=== PATIENT | female | born 1980 | race Two or more races ===

== ENCOUNTER → 2016-11-12 | Emergency (ER) | payer OTHER | END | disposition left against medical advice (07) | LOC: ER 00:55 | DX: I10 Essential (primary) hypertension (principal); Z53.21 Procedure and treatment not carried out due to patient leaving prior to being seen by health care provider ==

== ENCOUNTER 2017-02-22 00:58 | Emergency (ER) | payer MEDICAID ==
[~2017-02-22] VITALS: Ht 152.4 cm; Wt 61.2 kg
[2017-02-22] MEDS ORDERED: cloNIDine HCL 0.1 MG TAB ONE (01:09)
[2017-02-22] MEDS ORDERED: cloNIDine HCL 0.1 MG TAB PO ONE (01:30)
[2017-02-22] MEDS ORDERED: HYDROcodone-ACET 5/325MG TAB PO ONE (06:00)
[2017-02-22 09:35] VITALS: BP 144/95
== END 2017-02-22 10:24 | disposition home or self-care (01) ==
LOC: ER 01:00
DX: S83.92XA Sprain of unspecified site of left knee, initial encounter (principal); I10 Essential (primary) hypertension; R51 Headache; F17.210 Nicotine dependence, cigarettes, uncomplicated; W18.39XA Other fall on same level, initial encounter; Y93.89 Activity, other specified; Y92.89 Other specified places as the place of occurrence of the external cause; Y99.8 Other external cause status
CPT/HCPCS: 70450; 73562

== ENCOUNTER 2018-12-21 19:52 | Emergency (ER) | payer MEDICAID ==
[~2018-12-21] VITALS: Ht 157.5 cm; Wt 81.6 kg
[2018-12-21] MEDS ORDERED: FAMOTIDINE (10MG/ML) 2ML VL IV ONE (20:00)
[2018-12-21] MEDS ORDERED: MORPHINE SULFATE 4 MG/ML SYR/VIAL IV ONE (20:00)
[2018-12-21] MEDS ORDERED: PROCHLORPERAZINE EDISYLATE 5 MG/ML 2ML VIAL IV ONE (20:00)
[2018-12-21] MEDS ORDERED: LABETALOL HCL 5 MG/ML ML 20ML VIAL IV ONE ×2 (22:00→23:30)
[2018-12-21 22:25] LABS: Basophils # (auto) 0.1 uL; Eosinophils # (auto) 0.1 uL; Platelet Count (auto) 355 10^3/uL (140-450)
[2018-12-21 22:27] LABS: Basophils % (auto) 0.7 % (0.0-2.0); Eosinophils % (auto) 0.6 % (0.0-7.0); Hematocrit 43.5 % (36.0-46.0); Lymphocytes % (auto) 8.5 % (10.0-50.0); Mean Corpuscular Hemoglobin 26.2 pg (28.0-32.0); Mean Corpuscular Hgb Conc. 32.2 g/dL (32.0-36.0); Mean Corpuscular Volume 81.4 fL (80.0-100.0); Monocytes # (auto) 0.6 uL; Monocytes % (auto) 4.8 % (0.0-12.0); Neutrophils # (auto) 10.1 uL; Neutrophils % (auto) 85.4 % (37.0-80.0); Red Blood Cells 5.34 10^6/uL (4.0-5.20); Red Cell Distribution Width 16.5 % (11.8-14.3); White Blood Cell 11.8 10^3/uL (4.4-10.8)
[2018-12-21 22:39] LABS: Albumin 3.5 g/dL (3.4-5.0); Calcium 9.1 mg/dL (8.5-10.1); Potassium 3.4 mmol/L (3.5-5.1)
[2018-12-21 22:45] LABS: BUN/Creatinine Ratio 6.8; Bilirubin, Total 0.4 mg/dL (0.2-1.0); Total Protein 8.6 g/dL (6.4-8.2)
[2018-12-22] MEDS ORDERED: FUROSEMIDE 40 MG/4 ML VIAL IV ONE ×2 (00:30→02:15)
[2018-12-22 02:58] LABS: Urine Bacteria FEW /hpf (None Seen); Urine Blood Negative /uL (Negative); Urine Specific Gravity 1.007 (1.001-1.035); Urine WBC 2 /hpf (0 - 5)
[2018-12-22] MEDS ORDERED: NICARDIPINE 25MG/250ML BAG KIT 250 ML IV SCH (03:45)
[2018-12-22 04:48] LABS: Alcohol, Urine < 3.0 mg/dL (0-5); Amphetamine Screen, Urine POSITIVE (NEGATIVE); Barbiturate Scree,Urine NEGATIVE (NEGATIVE); Benzodiazephine Screen, Urine NEGATIVE (NEGATIVE); Cannabinoid Screen, Urine NEGATIVE (NEGATIVE); Cocaine Screen, Urine NEGATIVE (NEGATIVE); Opiate Scree,Urine NEGATIVE (NEGATIVE); Phencyclidine Screen, Urine NEGATIVE (NEGATIVE)
[2018-12-22 05:30] VITALS: BP 125/88
== END 2018-12-22 06:32 | disposition home or self-care (01) ==
LOC: EDBD 19:52 → ER 19:56
DX: R10.12 Left upper quadrant pain (principal); R10.32 Left lower quadrant pain; I16.0 Hypertensive urgency; I10 Essential (primary) hypertension; R51 Headache
CPT/HCPCS: 36415; 70450; 74176; 80053; 80307; 80320; 81001; 82140; 82150; 83605; 83690; 84702; 85025; 87040; 93005; 94761; 96365; 96375; 96376; 99284; J0780; J1940; J2270; J3490

== ENCOUNTER 2021-03-28 20:10 | Emergency (ER) | payer MEDICAID ==
[~2021-03-28] VITALS: Ht 152.4 cm; Wt 64.9 kg
[2021-03-29] MEDS ORDERED: ACETAMINOPHEN 325 MG TAB PO ONE (01:15)
[2021-03-29] MEDS ORDERED: IPRATROPIUM BROM 0.5 MG/2.5ML INH SOL ONE (03:20)
[2021-03-29] MEDS ORDERED: ALBUTEROL SULF 2.5 MG/0.5ML(0.5%) NEB SOLN ONE (03:20)
[2021-03-29] MEDS ORDERED: METO-289 PO (04:44)
[2021-03-29] MEDS ORDERED: CLOP75TA28 PO (04:44)
[2021-03-29] MEDS ORDERED: ATOR40TA52 PO (04:50)
[2021-03-29] MEDS ORDERED: ALBU108A5 IN (04:50)
[2021-03-29 05:00] VITALS: BP 129/78
== END 2021-03-29 05:36 | disposition home or self-care (01) ==
LOC: EDBD 20:10 → ER 20:13
DX: S09.8XXA Other specified injuries of head, initial encounter (principal); J45.909 Unspecified asthma, uncomplicated; E78.5 Hyperlipidemia, unspecified; I10 Essential (primary) hypertension; F17.210 Nicotine dependence, cigarettes, uncomplicated; F12.10 Cannabis abuse, uncomplicated; Y08.89XA Assault by other specified means, initial encounter; Y93.39 Activity, other involving climbing, rappelling and jumping off; Y92.89 Other specified places as the place of occurrence of the external cause; Y99.8 Other external cause status
CPT/HCPCS: 70450; 94644; 99284; J7644

== ENCOUNTER 2021-12-07 15:14 | Inpatient (IN) | payer MEDICAID ==
[~2021-12-07] VITALS: Ht 155.7 cm; Wt 61.1 kg
[2021-12-07] MEDS: SODIUM CHLORIDE 0.9% 1,000 ML IV SCH (02:30)
[2021-12-07] MEDS: AZITHROMYCIN 500MG/ 250ML 250 ML IV SCH (02:43)
[~2021-12-07 15:14] MED LIST: ALBU108A5 IN; ATOR40TA52 PO; CLOP75TA28 PO
[2021-12-07] MEDS ORDERED: SODIUM CHLORIDE 0.9% 1,000 ML IV ONE ×2 (15:45→17:30)
[2021-12-07] MEDS ORDERED: methylPREDNISolone SOD SUCC 125 MG/2 ML VL IV ONE (15:45)
[2021-12-07] MEDS ORDERED: ALBUTEROL SULF 2.5 MG/0.5ML(0.5%) NEB SOLN NEB ONE (15:45)
[2021-12-07] MEDS ORDERED: IPRATROPIUM BROM 0.5 MG/2.5ML INH SOL NEB ONE (15:45)
[2021-12-07] MEDS ORDERED: ALBUTEROL SULF 2.5 MG/0.5ML(0.5%) NEB SOLN ONE ×2 (16:25→22:31)
[2021-12-07 16:28] LABS: Basophils # (auto) 0.1 10 ^3/uL (0-0.2); Basophils % (auto) 0.4 % (0.0-2.0); Eosinophils # (auto) 0.3 10 ^3/uL (0-0.8); Eosinophils % (auto) 1.8 % (0.0-7.0); Hematocrit 40.3 % (36.0-46.0); Hemoglobin 12.8 g/dL (12.2-16.2); Lymphocytes # (auto) 1.1 10 ^3/uL (0.4-5.4); Lymphocytes % (auto) 7.7 % (10.0-50.0); Mean Corpuscular Hemoglobin 27.6 pg (28.0-32.0); Mean Corpuscular Hgb Conc. 31.8 g/dL (32.0-36.0); Mean Corpuscular Volume 86.8 fL (80.0-100.0); Monocytes # (auto) 1.1 10 ^3/uL (0-1.3); Monocytes % (auto) 8.1 % (0.0-12.0); Neutrophils # (auto) 11.3 10 ^3/uL (1.6-8.6); Red Blood Cells 4.64 10^6/uL (4.0-5.20); Red Cell Distribution Width 15.2 % (11.8-14.3); White Blood Cell 13.8 10^3/uL (4.4-10.8)
[2021-12-07] MEDS ORDERED: ACETAMINOPHEN 325 MG TAB PO ONE (16:45)
[2021-12-07] MEDS ORDERED: SUCCINYLCHOLINE CHLORIDE 20 MG/ML 10ML VIAL IV ONE ×3 (16:45→17:00)
[2021-12-07] MEDS ORDERED: ETOMIDATE (2MG/ML) 20ML VIAL IV ONE ×3 (16:45→17:00)
[2021-12-07 16:47] LABS: Albumin 2.8 g/dL (3.4-5.0); Calcium 8.4 mg/dL (8.5-10.1); Potassium 3.1 mmol/L (3.5-5.1)
[2021-12-07] MEDS ORDERED: MAGNESIUM SULFATE 1GM/100ML 200 ML IV ONE (16:48)
[2021-12-07 16:49] LABS: BUN/Creatinine Ratio 13.8
[2021-12-07 16:52] LABS: Bilirubin, Total 0.4 mg/dL (0.2-1.0); Total Protein 6.6 g/dL (6.4-8.2)
[2021-12-07] MEDS ORDERED: PROPOFOL 100 ML IV ONE (16:57)
[2021-12-07] MEDS: PROPOFOL 100 ML IV SCH ×2 (17:00→17:29)
[2021-12-07] MEDS: MAGNESIUM SULFATE 1GM/100ML 100 ML IV SCH ×2 (17:05→17:23)
[2021-12-07] MEDS ORDERED: MIDAZOLAM HCL 5 MG/ML-1ML VIAL ONE (17:06)
[2021-12-07] MEDS ORDERED: PROPOFOL 10 MG/ML 20 ML IV ONE (17:15)
[2021-12-07] MEDS ORDERED: fentaNYL CITRATE 100 MCG/2 ML VL IV ONE ×2 (17:15→18:30)
[2021-12-07] MEDS ORDERED: MIDAZOLAM HCL 5 MG/ML-1ML VIAL IV ONE (17:15)
[2021-12-07] MEDS ORDERED: fentaNYL CITRATE 100 MCG/2 ML VL ONE (17:16)
[2021-12-07] MEDS ORDERED: MIDAZOLAM DRIP 50 mg/50mL 50 ML IV ONE (17:22)
[2021-12-07] MEDS: MIDAZOLAM DRIP 50 mg/50mL 50 ML IV SCH ×4 (17:25→18:42)
[2021-12-07] MEDS ORDERED: POTASSIUM CHL 20MEQ/100ML 100 ML IV SCH (18:30)
[2021-12-07] MEDS ORDERED: fentaNYL Drip 2500mCg/250mlNS 250 ML IV SCH (18:30)
[2021-12-07] MEDS ORDERED: fentaNYL Drip 2500mCg/250mlNS 250 ML IV ONE (18:32)
[2021-12-07 18:33] VITALS: BP 132/96
[2021-12-07 18:41] LABS: Urine Bacteria NONE SEEN /hpf (None Seen); Urine Blood Negative /uL (Negative); Urine Specific Gravity 1.007 (1.001-1.035); Urine WBC <1 /hpf (0 - 5)
[2021-12-07] MEDS ORDERED: SOD CHL 0.9%/ KCL 40MEQ 1,000 ML IV ONE (18:45)
[2021-12-07] MEDS: fentaNYL Drip 2500mCg/250mlNS 250 ML IV SCH ×2 (18:45→19:03)
[2021-12-07 18:47] VITALS: BP 137/89
[2021-12-07 18:50] LABS: Lactic Acid w/Reflex 2.4 mmol/L (0.4-2.0)
[2021-12-07 18:57] LABS: Alcohol, Urine < 3.0 mg/dL (0-10); Amphetamine Screen, Urine NEGATIVE (NEGATIVE); Barbiturate Scree,Urine NEGATIVE (NEGATIVE); Benzodiazephine Screen, Urine POSITIVE (NEGATIVE); Cannabinoid Screen, Urine NEGATIVE (NEGATIVE); Cocaine Screen, Urine NEGATIVE (NEGATIVE); Opiate Scree,Urine NEGATIVE (NEGATIVE); Phencyclidine Screen, Urine NEGATIVE (NEGATIVE)
[2021-12-07] MEDS: NOREPINEPHRINE 8 MG/250ML KIT 250 ML IV SCH (19:00)
[2021-12-07 19:49] VITALS: BP 111/82
[2021-12-07] MEDS ORDERED: ROCURONIUM 10MG/ML 10ML VIAL IV ONE ×5 (20:00→23:20)
[2021-12-07] MEDS ORDERED: MORPHINE SULFATE INJ 2 MG/ml SYRG IV PRN (20:45)
[2021-12-07] MEDS ORDERED: DEXTROSE (50%) 50ML SYRG IV PRN (20:45)
[2021-12-07] MEDS ORDERED: SODIUM CHLORIDE 0.9% 1,000 ML IV SCH (20:45)
[2021-12-07] MEDS ORDERED: LORazepam 0.5 MG TAB PO PRN (20:45)
[2021-12-07] MEDS ORDERED: ONDANSETRON HCL 4 MG/2 ML VIAL IV PRN (20:45)
[2021-12-07] MEDS ORDERED: ROCURONIUM BROMIDE 1,000 MG in D5W 5% 150 ML IV SCH (22:00)
[2021-12-07] MEDS ORDERED: IPRATROPIUM BROM 0.5 MG/2.5ML INH SOL ONE (22:31)
[2021-12-07] MEDS ORDERED: NOREPINEPHRINE 8 MG/250ML KIT 250 ML IV ONE (23:02)
[2021-12-08] VITALS (71 sets, daily range): BP systolic 95–141; BP diastolic 44–96
[2021-12-08] MEDS: NOREPINEPHRINE 8 MG/250ML KIT 250 ML IV SCH (00:07)
[2021-12-08] MEDS: PROPOFOL 100 ML IV SCH ×4 (02:00→21:57)
[2021-12-08] MEDS: MIDAZOLAM DRIP 50 mg/50mL 50 ML IV SCH ×5 (02:00→20:00)
[2021-12-08] MEDS: cefTRIAXone 1GM/50ML D5W 50 ML IV SCH ×2 (02:30→10:04)
[2021-12-08] MEDS: ACCU-CHEK COMFORT CURVE STRIP VI SCH ×4 (02:40→17:26)
[2021-12-08] MEDS: InsuLIN REG 1unit/0.01ml Soln (100units/ml) SC SCH ×4 (02:40→17:26)
[2021-12-08] MEDS ORDERED: methylPREDNISolone SOD SUCC 40 MG/ML VL IV SCH ×2 (06:00→10:00)
[2021-12-08 06:43] LABS: Hematocrit 37.5 % (36.0-46.0); Mean Corpuscular Hemoglobin 28.3 pg (28.0-32.0); Mean Corpuscular Hgb Conc. 31.9 g/dL (32.0-36.0); Mean Corpuscular Volume 88.7 fL (80.0-100.0); Red Blood Cells 4.23 10^6/uL (4.0-5.20); Red Cell Distribution Width 15.1 % (11.8-14.3); White Blood Cell 23.1 10^3/uL (4.4-10.8)
[2021-12-08 07:00] LABS: Band Neutrophils % (manual) 0; Basophils % (manual) 0 (0.0-2.0); Blast Cells 0; Eosinophils % (manual) 0 (0-7); Metamyelocytes % 0; Myelocytes % 0; Promyelocytes % 0; Reactive Lymphocytes 0
[2021-12-08] MEDS: SODIUM CHLORIDE 0.9% 1,000 ML IV SCH ×2 (08:04→16:35)
[2021-12-08] MEDS ORDERED: SODIUM BICARBONATE 8.4 % INJ 50ML VIAL IV ONE (08:15)
[2021-12-08 09:17] LABS: Lymphocytes % (manual) 3 (10.0-50.0); Monocytes % (manual) 4 (0-12)
[2021-12-08] MEDS: ALBUTEROL SULF 2.5 MG/0.5ML(0.5%) NEB SOLN NEB SCH ×7 (09:32→22:40)
[2021-12-08 09:55] LABS: BUN/Creatinine Ratio 10.3; Calcium 6.7 mg/dL (8.5-10.1)
[2021-12-08] MEDS: fentaNYL Drip 2500mCg/250mlNS 250 ML IV SCH ×2 (10:00→18:00)
[2021-12-08 10:01] LABS: Potassium 6.3 mmol/L (3.5-5.1)
[2021-12-08] MEDS: KETAMINE HCL 500 MG in SODIUM CHL 0.9% 490 ML IV SCH (10:12)
[2021-12-08] MEDS: BUDESONIDE (INHALATION) 0.5 MG/2 ML NEB NEB SCH ×2 (10:35→19:09)
[2021-12-08] MEDS: AZITHROMYCIN 500MG/ 250ML 250 ML IV SCH (10:36)
[2021-12-08] MEDS: IPRATROPIUM BROM 0.5 MG/2.5ML INH SOL NEB SCH ×3 (11:01→22:40)
[2021-12-08] MEDS ORDERED: VANCOMYCIN PER PHARMACY 0 MG IV SCH (11:45)
[2021-12-08] MEDS ORDERED: CALCIUM GLUC 1,000mg/50ml-NS 50 ML IV ONE (11:45)
[2021-12-08] MEDS ORDERED: DEXTROSE (50%) 50ML SYRG IV ONE (11:45)
[2021-12-08] MEDS ORDERED: InsuLIN REG 1unit/0.01ml Soln (100units/ml) IV ONE (11:45)
[2021-12-08] MEDS ORDERED: ALBUTEROL SULF 2.5 MG/0.5ML(0.5%) NEB SOLN NEB ONE (11:45)
[2021-12-08] MEDS: methylPREDNISolone SOD SUCC 40 MG/ML VL IV SCH ×2 (12:28→17:39)
[2021-12-08] MEDS: VANCOMYCIN 1GM/250ML 250 ML IV SCH (13:15)
[2021-12-08 15:57] LABS: BUN/Creatinine Ratio 6.8; Calcium 7.5 mg/dL (8.5-10.1); Potassium 3.7 mmol/L (3.5-5.1)
[2021-12-09] VITALS (106 sets, daily range): BP systolic 86–117; BP diastolic 43–79
[2021-12-09] MEDS: VANCOMYCIN 1GM/250ML 250 ML IV SCH ×2 (01:00→13:08)
[2021-12-09] MEDS: SODIUM CHLORIDE 0.9% 1,000 ML IV SCH ×3 (03:16→17:50)
[2021-12-09] MEDS: fentaNYL Drip 2500mCg/250mlNS 250 ML IV SCH ×3 (03:17→18:39)
[2021-12-09] MEDS: MIDAZOLAM DRIP 50 mg/50mL 50 ML IV SCH ×6 (03:24→20:30)
[2021-12-09 04:14] LABS: Basophils # (auto) 0 10 ^3/uL (0-0.2); Basophils % (auto) 0.2 % (0.0-2.0); Eosinophils # (auto) 0 10 ^3/uL (0-0.8); Eosinophils % (auto) 0.2 % (0.0-7.0); Hematocrit 30.6 % (36.0-46.0); Lymphocytes # (auto) 0.4 10 ^3/uL (0.4-5.4); Lymphocytes % (auto) 2.2 % (10.0-50.0); Mean Corpuscular Hemoglobin 28.2 pg (28.0-32.0); Mean Corpuscular Hgb Conc. 32.6 g/dL (32.0-36.0); Mean Corpuscular Volume 86.6 fL (80.0-100.0); Monocytes # (auto) 0.5 10 ^3/uL (0-1.3); Monocytes % (auto) 2.8 % (0.0-12.0); Neutrophils # (auto) 17.9 10 ^3/uL (1.6-8.6); Neutrophils % (auto) 94.6 % (37.0-80.0); Red Blood Cells 3.53 10^6/uL (4.0-5.20); Red Cell Distribution Width 15.1 % (11.8-14.3); White Blood Cell 18.9 10^3/uL (4.4-10.8)
[2021-12-09] MEDS: ALBUTEROL SULF 2.5 MG/0.5ML(0.5%) NEB SOLN NEB SCH ×6 (04:28→22:16)
[2021-12-09] MEDS: IPRATROPIUM BROM 0.5 MG/2.5ML INH SOL NEB SCH ×6 (04:28→22:16)
[2021-12-09 04:30] LABS: Albumin 2.1 g/dL (3.4-5.0); Calcium 7.4 mg/dL (8.5-10.1); Potassium 3.3 mmol/L (3.5-5.1)
[2021-12-09 04:35] LABS: BUN/Creatinine Ratio 11.6; Bilirubin, Total 0.5 mg/dL (0.2-1.0); Total Protein 5.2 g/dL (6.4-8.2)
[2021-12-09] MEDS: InsuLIN REG 1unit/0.01ml Soln (100units/ml) SC SCH ×4 (06:00→18:00)
[2021-12-09] MEDS: ACCU-CHEK COMFORT CURVE STRIP VI SCH ×4 (06:00→17:50)
[2021-12-09] MEDS: methylPREDNISolone SOD SUCC 40 MG/ML VL IV SCH ×4 (06:23→17:49)
[2021-12-09] MEDS: BUDESONIDE (INHALATION) 0.5 MG/2 ML NEB NEB SCH ×2 (06:28→18:20)
[2021-12-09] MEDS: PROPOFOL 100 ML IV SCH ×3 (08:01→17:50)
[2021-12-09] MEDS: cefTRIAXone 1GM/50ML D5W 50 ML IV SCH (09:45)
[2021-12-09] MEDS: AZITHROMYCIN 500MG/ 250ML 250 ML IV SCH (09:45)
[2021-12-09] MEDS ORDERED: POTASSIUM CHL 20MEQ/100ML 100 ML IV ONE (10:45)
[2021-12-09] MEDS: PANTOPRAZOLE 40 MG/10 ML VIAL INJ IV SCH (11:03)
[2021-12-09] MEDS: KETAMINE HCL 500 MG in SODIUM CHL 0.9% 490 ML IV SCH (11:04)
[2021-12-09] MEDS: NOREPINEPHRINE 8 MG/250ML KIT 250 ML IV SCH (23:30)
[2021-12-10] VITALS (102 sets, daily range): BP systolic 90–146; BP diastolic 48–93
[2021-12-10] MEDS: methylPREDNISolone SOD SUCC 40 MG/ML VL IV SCH ×4 (00:09→17:45)
[2021-12-10] MEDS: SODIUM CHLORIDE 0.9% 1,000 ML IV SCH ×3 (01:00→17:40)
[2021-12-10] MEDS: VANCOMYCIN 1GM/250ML 250 ML IV SCH ×2 (01:07→12:33)
[2021-12-10] MEDS: PROPOFOL 100 ML IV SCH ×3 (01:16→23:56)
[2021-12-10] MEDS: ALBUTEROL SULF 2.5 MG/0.5ML(0.5%) NEB SOLN NEB SCH ×6 (02:14→22:50)
[2021-12-10] MEDS: IPRATROPIUM BROM 0.5 MG/2.5ML INH SOL NEB SCH ×6 (02:14→22:47)
[2021-12-10] MEDS: fentaNYL Drip 2500mCg/250mlNS 250 ML IV SCH ×3 (03:18→18:50)
[2021-12-10 03:35] LABS: Basophils # (auto) 0.1 10 ^3/uL (0-0.2); Basophils % (auto) 0.6 % (0.0-2.0); Eosinophils # (auto) 0 10 ^3/uL (0-0.8); Eosinophils % (auto) 0.1 % (0.0-7.0); Hematocrit 31.6 % (36.0-46.0); Hemoglobin 10.4 g/dL (12.2-16.2); Lymphocytes # (auto) 0.4 10 ^3/uL (0.4-5.4); Lymphocytes % (auto) 2.2 % (10.0-50.0); Mean Corpuscular Hemoglobin 28.7 pg (28.0-32.0); Mean Corpuscular Hgb Conc. 32.8 g/dL (32.0-36.0); Mean Corpuscular Volume 87.3 fL (80.0-100.0); Monocytes # (auto) 0.4 10 ^3/uL (0-1.3); Monocytes % (auto) 1.9 % (0.0-12.0); Neutrophils # (auto) 17.8 10 ^3/uL (1.6-8.6); Neutrophils % (auto) 95.2 % (37.0-80.0); Nucleated Red Blood Cells % 0.2 %; Red Blood Cells 3.61 10^6/uL (4.0-5.20); Red Cell Distribution Width 15.7 % (11.8-14.3); White Blood Cell 18.7 10^3/uL (4.4-10.8)
[2021-12-10 03:47] LABS: BUN/Creatinine Ratio 23.4; Calcium 7.7 mg/dL (8.5-10.1); Potassium 3.6 mmol/L (3.5-5.1)
[2021-12-10 03:50] LABS: Bilirubin, Total 0.2 mg/dL (0.2-1.0); Total Protein 5.2 g/dL (6.4-8.2)
[2021-12-10] MEDS ORDERED: ALBUTEROL SULF 2.5 MG/0.5ML(0.5%) NEB SOLN NEB ONE ×3 (04:04→17:30)
[2021-12-10] MEDS ORDERED: IPRATROPIUM BROM 0.5 MG/2.5ML INH SOL NEB ONE (04:04)
[2021-12-10] MEDS ORDERED: IPRATROPIUM BROM 0.5 MG/2.5ML INH SOL ONE (04:22)
[2021-12-10] MEDS ORDERED: ALBUTEROL SULF 2.5 MG/0.5ML(0.5%) NEB SOLN ONE ×3 (04:22→19:17)
[2021-12-10] MEDS: ACCU-CHEK COMFORT CURVE STRIP VI SCH ×4 (06:00→17:37)
[2021-12-10] MEDS: InsuLIN REG 1unit/0.01ml Soln (100units/ml) SC SCH ×4 (06:00→17:37)
[2021-12-10] MEDS: MIDAZOLAM DRIP 50 mg/50mL 50 ML IV SCH ×3 (06:00→22:50)
[2021-12-10] MEDS: BUDESONIDE (INHALATION) 0.5 MG/2 ML NEB NEB SCH ×2 (06:45→22:47)
[2021-12-10] MEDS: cefTRIAXone 1GM/50ML D5W 50 ML IV SCH (08:03)
[2021-12-10] MEDS: AZITHROMYCIN 500MG/ 250ML 250 ML IV SCH (08:03)
[2021-12-10] MEDS: PANTOPRAZOLE 40 MG/10 ML VIAL INJ IV SCH (08:03)
[2021-12-10] MEDS: KETAMINE HCL 500 MG in SODIUM CHL 0.9% 490 ML IV SCH (08:04)
[2021-12-10] MEDS: NOREPINEPHRINE 8 MG/250ML KIT 250 ML IV SCH (23:30)
[2021-12-11] VITALS (103 sets, daily range): BP systolic 84–161; BP diastolic 44–104
[2021-12-11] MEDS: methylPREDNISolone SOD SUCC 40 MG/ML VL IV SCH ×5 (00:04→23:38)
[2021-12-11] MEDS: SODIUM CHLORIDE 0.9% 1,000 ML IV SCH ×3 (02:00→20:06)
[2021-12-11] MEDS: VANCOMYCIN 1GM/250ML 250 ML IV SCH ×2 (02:10→14:13)
[2021-12-11] MEDS: fentaNYL Drip 2500mCg/250mlNS 250 ML IV SCH ×2 (02:13→10:36)
[2021-12-11] MEDS: ALBUTEROL SULF 2.5 MG/0.5ML(0.5%) NEB SOLN NEB SCH ×6 (02:26→22:18)
[2021-12-11] MEDS: IPRATROPIUM BROM 0.5 MG/2.5ML INH SOL NEB SCH ×6 (02:26→22:18)
[2021-12-11 04:44] LABS: Basophils # (auto) 0 10 ^3/uL (0-0.2); Basophils % (auto) 0.1 % (0.0-2.0); Eosinophils # (auto) 0 10 ^3/uL (0-0.8); Hematocrit 32.3 % (36.0-46.0); Hemoglobin 10.2 g/dL (12.2-16.2); Lymphocytes # (auto) 0.3 10 ^3/uL (0.4-5.4); Lymphocytes % (auto) 1.6 % (10.0-50.0); Mean Corpuscular Hemoglobin 28.1 pg (28.0-32.0); Mean Corpuscular Hgb Conc. 31.7 g/dL (32.0-36.0); Mean Corpuscular Volume 88.4 fL (80.0-100.0); Monocytes # (auto) 0.4 10 ^3/uL (0-1.3); Monocytes % (auto) 2.5 % (0.0-12.0); Neutrophils # (auto) 15.5 10 ^3/uL (1.6-8.6); Neutrophils % (auto) 95.8 % (37.0-80.0); Nucleated Red Blood Cells % 0.1 %; Red Blood Cells 3.65 10^6/uL (4.0-5.20); Red Cell Distribution Width 16.2 % (11.8-14.3); White Blood Cell 16.2 10^3/uL (4.4-10.8)
[2021-12-11 04:54] LABS: Albumin 2.2 g/dL (3.4-5.0); Calcium 7.6 mg/dL (8.5-10.1); Potassium 4.3 mmol/L (3.5-5.1)
[2021-12-11 04:59] LABS: Bilirubin, Total 0.2 mg/dL (0.2-1.0); Total Protein 5.6 g/dL (6.4-8.2)
[2021-12-11] MEDS: ACCU-CHEK COMFORT CURVE STRIP VI SCH ×5 (06:00→23:39)
[2021-12-11] MEDS: InsuLIN REG 1unit/0.01ml Soln (100units/ml) SC SCH ×5 (06:00→23:38)
[2021-12-11] MEDS: PROPOFOL 100 ML IV SCH ×2 (06:27→13:42)
[2021-12-11] MEDS: KETAMINE HCL 500 MG in SODIUM CHL 0.9% 490 ML IV SCH (08:15)
[2021-12-11] MEDS: MIDAZOLAM DRIP 50 mg/50mL 50 ML IV SCH ×5 (08:16→20:00)
[2021-12-11] MEDS ORDERED: ALBUTEROL SULF 2.5 MG/0.5ML(0.5%) NEB SOLN ONE (08:53)
[2021-12-11] MEDS ORDERED: ALBUTEROL SULF 2.5 MG/0.5ML(0.5%) NEB SOLN NEB ONE (09:00)
[2021-12-11] MEDS: AZITHROMYCIN 500MG/ 250ML 250 ML IV SCH (09:29)
[2021-12-11] MEDS: PANTOPRAZOLE 40 MG/10 ML VIAL INJ IV SCH (09:29)
[2021-12-11] MEDS: cefTRIAXone 1GM/50ML D5W 50 ML IV SCH (09:29)
[2021-12-11] MEDS: BUDESONIDE (INHALATION) 0.5 MG/2 ML NEB NEB SCH ×2 (09:33→22:18)
[2021-12-11] MEDS: ENOXAPARIN SOD 40 MG/0.4 ML SYRINGE SC SCH (12:28)
[2021-12-11] MEDS: NOREPINEPHRINE 8 MG/250ML KIT 250 ML IV SCH (23:30)
[2021-12-12] VITALS (107 sets, daily range): BP systolic 90–144; BP diastolic 51–97
[2021-12-12] MEDS: VANCOMYCIN 1GM/250ML 250 ML IV SCH ×2 (01:00→12:59)
[2021-12-12] MEDS: IPRATROPIUM BROM 0.5 MG/2.5ML INH SOL NEB SCH ×5 (02:14→22:11)
[2021-12-12] MEDS: ALBUTEROL SULF 2.5 MG/0.5ML(0.5%) NEB SOLN NEB SCH ×5 (02:14→22:11)
[2021-12-12] MEDS: SODIUM CHLORIDE 0.9% 1,000 ML IV SCH ×4 (03:00→06:19)
[2021-12-12] MEDS: ALBUTEROL SULF 2.5 MG/0.5ML(0.5%) NEB SOLN NEB PRN ×5 (04:40→17:58)
[2021-12-12] MEDS: BUDESONIDE (INHALATION) 0.5 MG/2 ML NEB NEB SCH ×2 (05:48→22:11)
[2021-12-12] MEDS: InsuLIN REG 1unit/0.01ml Soln (100units/ml) SC SCH ×4 (06:00→23:43)
[2021-12-12] MEDS: methylPREDNISolone SOD SUCC 40 MG/ML VL IV SCH ×4 (06:00→23:41)
[2021-12-12] MEDS: ACCU-CHEK COMFORT CURVE STRIP VI SCH ×4 (06:00→23:41)
[2021-12-12] MEDS: cefTRIAXone 1GM/50ML D5W 50 ML IV SCH (09:27)
[2021-12-12] MEDS: PANTOPRAZOLE 40 MG/10 ML VIAL INJ IV SCH (09:28)
[2021-12-12] MEDS: ENOXAPARIN SOD 40 MG/0.4 ML SYRINGE SC SCH (09:28)
[2021-12-12] MEDS: AZITHROMYCIN 500MG/ 250ML 250 ML IV SCH (09:28)
[2021-12-12] MEDS: PROPOFOL 100 ML IV SCH ×3 (09:34→20:10)
[2021-12-12] MEDS: MIDAZOLAM DRIP 50 mg/50mL 50 ML IV SCH ×4 (11:13→21:25)
[2021-12-12] MEDS: fentaNYL Drip 2500mCg/250mlNS 250 ML IV SCH ×2 (11:47→20:09)
[2021-12-12] MEDS: FUROSEMIDE 40 MG/4 ML VIAL IV SCH (12:56)
[2021-12-12] MEDS: KETAMINE HCL 500 MG in SODIUM CHL 0.9% 490 ML IV SCH (17:19)
[2021-12-12] MEDS: NOREPINEPHRINE 8 MG/250ML KIT 250 ML IV SCH (23:30)
[2021-12-13] VITALS (107 sets, daily range): BP systolic 96–141; BP diastolic 52–91
[2021-12-13] MEDS: VANCOMYCIN 1GM/250ML 250 ML IV SCH ×3 (00:32→19:48)
[2021-12-13] MEDS: PROPOFOL 100 ML IV SCH ×6 (00:33→23:58)
[2021-12-13] MEDS: MIDAZOLAM DRIP 50 mg/50mL 50 ML IV SCH ×7 (02:00→22:23)
[2021-12-13] MEDS: ALBUTEROL SULF 2.5 MG/0.5ML(0.5%) NEB SOLN NEB SCH ×5 (02:37→22:07)
[2021-12-13] MEDS: IPRATROPIUM BROM 0.5 MG/2.5ML INH SOL NEB SCH ×5 (02:37→22:07)
[2021-12-13] MEDS: ROCURONIUM 10MG/ML 10ML VIAL IV PRN ×4 (03:23→22:41)
[2021-12-13] MEDS: ALBUTEROL SULF 2.5 MG/0.5ML(0.5%) NEB SOLN NEB PRN (03:39)
[2021-12-13] MEDS: fentaNYL Drip 2500mCg/250mlNS 250 ML IV SCH ×3 (03:53→19:55)
[2021-12-13] MEDS: KETAMINE HCL 500 MG in SODIUM CHL 0.9% 490 ML IV SCH (05:32)
[2021-12-13] MEDS: methylPREDNISolone SOD SUCC 40 MG/ML VL IV SCH ×4 (05:32→23:45)
[2021-12-13] MEDS: ACCU-CHEK COMFORT CURVE STRIP VI SCH ×4 (05:35→23:45)
[2021-12-13] MEDS: InsuLIN REG 1unit/0.01ml Soln (100units/ml) SC SCH ×4 (05:37→23:49)
[2021-12-13] MEDS: BUDESONIDE (INHALATION) 0.5 MG/2 ML NEB NEB SCH ×2 (07:49→22:07)
[2021-12-13] MEDS: AZITHROMYCIN 500MG/ 250ML 250 ML IV SCH (09:41)
[2021-12-13] MEDS: PANTOPRAZOLE 40 MG/10 ML VIAL INJ IV SCH (09:41)
[2021-12-13] MEDS: ENOXAPARIN SOD 40 MG/0.4 ML SYRINGE SC SCH (09:41)
[2021-12-13] MEDS: cefTRIAXone 1GM/50ML D5W 50 ML IV SCH (09:41)
[2021-12-13] MEDS: FUROSEMIDE 40 MG/4 ML VIAL IV SCH (09:42)
[2021-12-13 12:02] LABS: Basophils # (auto) 0 10 ^3/uL (0-0.2); Basophils % (auto) 0.4 % (0.0-2.0); Eosinophils # (auto) 0 10 ^3/uL (0-0.8); Eosinophils % (auto) 0.1 % (0.0-7.0); Hematocrit 30.4 % (36.0-46.0); Lymphocytes # (auto) 0.3 10 ^3/uL (0.4-5.4); Lymphocytes % (auto) 1.9 % (10.0-50.0); Mean Corpuscular Hemoglobin 27.8 pg (28.0-32.0); Mean Corpuscular Hgb Conc. 32.9 g/dL (32.0-36.0); Mean Corpuscular Volume 84.7 fL (80.0-100.0); Monocytes # (auto) 0.6 10 ^3/uL (0-1.3); Monocytes % (auto) 4.7 % (0.0-12.0); Neutrophils % (auto) 92.9 % (37.0-80.0); Nucleated Red Blood Cells % 0.1 %; Red Blood Cells 3.59 10^6/uL (4.0-5.20); Red Cell Distribution Width 15.4 % (11.8-14.3); White Blood Cell 12.9 10^3/uL (4.4-10.8)
[2021-12-13 12:21] LABS: Anion Gap 8 (5-15); BUN/Creatinine Ratio 41.5; Blood Urea Nitrogen 27 mg/dL (7-18); Calcium 7.5 mg/dL (8.5-10.1); Carbon Dioxide 25 mmol/L (21-32); Chloride 111 mmol/L (98-107); GFR African American 130 mL/min; GFR Non-African American 107 mL/min; Glucose 148 mg/dL (74-106); Potassium 3.6 mmol/L (3.5-5.1); Sodium 144 mmol/L (136-145)
[2021-12-13] MEDS: NOREPINEPHRINE 8 MG/250ML KIT 250 ML IV SCH (23:30)
[2021-12-14] VITALS (108 sets, daily range): BP systolic 91–130; BP diastolic 50–86
[2021-12-14] MEDS: ROCURONIUM 10MG/ML 10ML VIAL IV PRN ×4 (00:11→22:27)
[2021-12-14] MEDS: ALBUTEROL SULF 2.5 MG/0.5ML(0.5%) NEB SOLN NEB PRN ×7 (00:20→08:32)
[2021-12-14] MEDS: MIDAZOLAM DRIP 50 mg/50mL 50 ML IV SCH ×5 (01:28→21:30)
[2021-12-14] MEDS: ALBUTEROL SULF 2.5 MG/0.5ML(0.5%) NEB SOLN NEB SCH ×6 (02:00→22:26)
[2021-12-14] MEDS: IPRATROPIUM BROM 0.5 MG/2.5ML INH SOL NEB SCH ×6 (02:00→22:26)
[2021-12-14] MEDS: KETAMINE HCL 500 MG in SODIUM CHL 0.9% 490 ML IV SCH (02:38)
[2021-12-14] MEDS: fentaNYL Drip 2500mCg/250mlNS 250 ML IV SCH ×2 (04:29→21:48)
[2021-12-14 04:41] LABS: Basophils # (auto) 0 10 ^3/uL (0-0.2); Basophils % (auto) 0.1 % (0.0-2.0); Eosinophils # (auto) 0 10 ^3/uL (0-0.8); Hematocrit 30.4 % (36.0-46.0); Hemoglobin 9.9 g/dL (12.2-16.2); Lymphocytes # (auto) 0.2 10 ^3/uL (0.4-5.4); Lymphocytes % (auto) 1.7 % (10.0-50.0); Mean Corpuscular Hemoglobin 28.5 pg (28.0-32.0); Mean Corpuscular Hgb Conc. 32.6 g/dL (32.0-36.0); Mean Corpuscular Volume 87.5 fL (80.0-100.0); Monocytes # (auto) 0.6 10 ^3/uL (0-1.3); Monocytes % (auto) 5.1 % (0.0-12.0); Neutrophils % (auto) 93.1 % (37.0-80.0); Nucleated Red Blood Cells % 0.2 %; Red Blood Cells 3.48 10^6/uL (4.0-5.20); Red Cell Distribution Width 15.6 % (11.8-14.3); White Blood Cell 10.7 10^3/uL (4.4-10.8)
[2021-12-14 04:52] LABS: Calcium 7.4 mg/dL (8.5-10.1); Magnesium 2.5 mg/dL (1.6-2.6); Phosphorus 3.9 mg/dL (2.5-4.90); Potassium 3.9 mmol/L (3.5-5.1)
[2021-12-14] MEDS: PROPOFOL 100 ML IV SCH ×4 (05:10→21:25)
[2021-12-14] MEDS: methylPREDNISolone SOD SUCC 40 MG/ML VL IV SCH ×3 (05:36→18:02)
[2021-12-14] MEDS: ACCU-CHEK COMFORT CURVE STRIP VI SCH ×3 (05:36→18:23)
[2021-12-14] MEDS: InsuLIN REG 1unit/0.01ml Soln (100units/ml) SC SCH ×3 (05:39→18:00)
[2021-12-14] MEDS: BUDESONIDE (INHALATION) 0.5 MG/2 ML NEB NEB SCH ×2 (06:15→18:34)
[2021-12-14] MEDS: ENOXAPARIN SOD 40 MG/0.4 ML SYRINGE SC SCH (09:53)
[2021-12-14] MEDS: PANTOPRAZOLE 40 MG/10 ML VIAL INJ IV SCH (09:53)
[2021-12-14] MEDS: FUROSEMIDE 40 MG/4 ML VIAL IV SCH (09:54)
[2021-12-14] MEDS: cefTRIAXone 1GM/50ML D5W 50 ML IV SCH (09:55)
[2021-12-14] MEDS: AZITHROMYCIN 500MG/ 250ML 250 ML IV SCH (10:47)
[2021-12-14] MEDS ORDERED: Jevity 1.2 Cal/Fiber 1 Liter GT SCH (14:30)
[2021-12-14] MEDS: VANCOMYCIN 1GM/250ML 250 ML IV SCH (15:01)
[2021-12-14] MEDS: ceFAZolin 2 GM in D5W 5% 100 ML IV SCH (21:49)
[2021-12-14] MEDS: NOREPINEPHRINE 8 MG/250ML KIT 250 ML IV SCH (23:30)
[2021-12-15] VITALS (105 sets, daily range): BP systolic 110–157; BP diastolic 68–104
[2021-12-15] MEDS: methylPREDNISolone SOD SUCC 40 MG/ML VL IV SCH ×4 (00:19→18:50)
[2021-12-15] MEDS: ROCURONIUM 10MG/ML 10ML VIAL IV PRN ×7 (00:31→22:17)
[2021-12-15] MEDS: MIDAZOLAM DRIP 50 mg/50mL 50 ML IV SCH ×6 (01:13→19:48)
[2021-12-15] MEDS: IPRATROPIUM BROM 0.5 MG/2.5ML INH SOL NEB SCH ×6 (02:46→22:05)
[2021-12-15] MEDS: ALBUTEROL SULF 2.5 MG/0.5ML(0.5%) NEB SOLN NEB SCH ×6 (02:46→22:05)
[2021-12-15] MEDS: PROPOFOL 100 ML IV SCH ×4 (03:03→18:47)
[2021-12-15 04:35] LABS: Basophils # (auto) 0 10 ^3/uL (0-0.2); Basophils % (auto) 0.3 % (0.0-2.0); Eosinophils # (auto) 0 10 ^3/uL (0-0.8); Eosinophils % (auto) 0.1 % (0.0-7.0); Hematocrit 31.2 % (36.0-46.0); Lymphocytes # (auto) 0.2 10 ^3/uL (0.4-5.4); Lymphocytes % (auto) 1.4 % (10.0-50.0); Mean Corpuscular Hemoglobin 28.1 pg (28.0-32.0); Mean Corpuscular Volume 87.7 fL (80.0-100.0); Monocytes # (auto) 0.7 10 ^3/uL (0-1.3); Monocytes % (auto) 5.6 % (0.0-12.0); Neutrophils # (auto) 11.2 10 ^3/uL (1.6-8.6); Neutrophils % (auto) 92.6 % (37.0-80.0); Nucleated Red Blood Cells % 0.1 %; Red Blood Cells 3.55 10^6/uL (4.0-5.20); Red Cell Distribution Width 15.6 % (11.8-14.3); White Blood Cell 12.1 10^3/uL (4.4-10.8)
[2021-12-15 04:51] LABS: Albumin 2.2 g/dL (3.4-5.0); BUN/Creatinine Ratio 58.7; Calcium 7.8 mg/dL (8.5-10.1); Potassium 4.4 mmol/L (3.5-5.1)
[2021-12-15 04:54] LABS: Bilirubin, Total 0.2 mg/dL (0.2-1.0); Total Protein 5.3 g/dL (6.4-8.2)
[2021-12-15] MEDS: ACCU-CHEK COMFORT CURVE STRIP VI SCH ×4 (06:00→18:53)
[2021-12-15] MEDS: InsuLIN REG 1unit/0.01ml Soln (100units/ml) SC SCH ×4 (06:00→18:00)
[2021-12-15] MEDS: ceFAZolin 2 GM in D5W 5% 100 ML IV SCH ×3 (06:00→21:20)
[2021-12-15] MEDS: BUDESONIDE (INHALATION) 0.5 MG/2 ML NEB NEB SCH ×2 (06:18→22:05)
[2021-12-15] MEDS: fentaNYL Drip 2500mCg/250mlNS 250 ML IV SCH ×3 (06:28→21:21)
[2021-12-15] MEDS: PANTOPRAZOLE 40 MG/10 ML VIAL INJ IV SCH (10:29)
[2021-12-15] MEDS: FUROSEMIDE 40 MG/4 ML VIAL IV SCH (10:30)
[2021-12-15] MEDS: ENOXAPARIN SOD 40 MG/0.4 ML SYRINGE SC SCH (10:30)
[2021-12-15] MEDS: NOREPINEPHRINE 8 MG/250ML KIT 250 ML IV SCH (23:30)
[2021-12-16] VITALS (105 sets, daily range): BP systolic 100–167; BP diastolic 60–105
[2021-12-16] MEDS: MIDAZOLAM DRIP 50 mg/50mL 50 ML IV SCH ×5 (00:07→20:18)
[2021-12-16] MEDS: PROPOFOL 100 ML IV SCH ×6 (00:07→23:22)
[2021-12-16] MEDS: methylPREDNISolone SOD SUCC 40 MG/ML VL IV SCH ×4 (00:54→21:57)
[2021-12-16] MEDS: ALBUTEROL SULF 2.5 MG/0.5ML(0.5%) NEB SOLN NEB SCH ×6 (02:10→22:14)
[2021-12-16] MEDS: IPRATROPIUM BROM 0.5 MG/2.5ML INH SOL NEB SCH ×6 (02:10→22:14)
[2021-12-16 04:21] LABS: Hematocrit 31.9 % (36.0-46.0); Hemoglobin 10.8 g/dL (12.2-16.2); Mean Corpuscular Hemoglobin 28.4 pg (28.0-32.0); Mean Corpuscular Hgb Conc. 33.8 g/dL (32.0-36.0); Red Blood Cells 3.79 10^6/uL (4.0-5.20); White Blood Cell 9.9 10^3/uL (4.4-10.8)
[2021-12-16 04:24] LABS: Band Neutrophils % (manual) 0; Basophils % (manual) 0 (0.0-2.0); Blast Cells 0; Eosinophils % (manual) 0 (0-7); Promyelocytes % 0; Reactive Lymphocytes 0
[2021-12-16 04:33] LABS: Calcium 8.5 mg/dL (8.5-10.1); Potassium 3.6 mmol/L (3.5-5.1)
[2021-12-16 04:37] LABS: BUN/Creatinine Ratio 65.2
[2021-12-16] MEDS: ceFAZolin 2 GM in D5W 5% 100 ML IV SCH ×3 (05:22→21:54)
[2021-12-16] MEDS: ACCU-CHEK COMFORT CURVE STRIP VI SCH ×5 (05:29→23:39)
[2021-12-16] MEDS: InsuLIN REG 1unit/0.01ml Soln (100units/ml) SC SCH ×5 (05:29→23:39)
[2021-12-16] MEDS: BUDESONIDE (INHALATION) 0.5 MG/2 ML NEB NEB SCH ×2 (06:00→22:14)
[2021-12-16] MEDS: fentaNYL Drip 2500mCg/250mlNS 250 ML IV SCH ×3 (06:31→21:56)
[2021-12-16 06:44] LABS: Lymphocytes % (manual) 4 (10.0-50.0); Metamyelocytes % 1; Monocytes % (manual) 6 (0-12); Myelocytes % 1
[2021-12-16] MEDS: hydrALAZINE HCL 20 MG/ML VL IV PRN (08:49)
[2021-12-16] MEDS: ROCURONIUM 10MG/ML 10ML VIAL IV PRN ×2 (09:12→09:49)
[2021-12-16] MEDS: ENOXAPARIN SOD 40 MG/0.4 ML SYRINGE SC SCH (10:29)
[2021-12-16] MEDS: PANTOPRAZOLE 40 MG/10 ML VIAL INJ IV SCH ×2 (10:29→21:56)
[2021-12-16] MEDS: FUROSEMIDE 40 MG/4 ML VIAL IV SCH (10:29)
[2021-12-16] MEDS ORDERED: BUPRENORPHINE IV SCH (12:15)
[2021-12-16] MEDS ORDERED: LORazepam 2MG/ML-1ML VIAL IV PRN (13:30)
[2021-12-16] MEDS: NOREPINEPHRINE 8 MG/250ML KIT 250 ML IV SCH (23:17)
[2021-12-17] VITALS (106 sets, daily range): BP systolic 104–182; BP diastolic 65–105
[2021-12-17] MEDS: MIDAZOLAM DRIP 50 mg/50mL 50 ML IV SCH ×6 (01:08→23:36)
[2021-12-17] MEDS: hydrALAZINE HCL 20 MG/ML VL IV PRN (01:31)
[2021-12-17] MEDS: ALBUTEROL SULF 2.5 MG/0.5ML(0.5%) NEB SOLN NEB SCH ×6 (02:22→22:07)
[2021-12-17] MEDS: IPRATROPIUM BROM 0.5 MG/2.5ML INH SOL NEB SCH ×6 (02:22→22:07)
[2021-12-17 04:04] LABS: Hematocrit 32.2 % (36.0-46.0); Mean Corpuscular Hemoglobin 28.4 pg (28.0-32.0); Mean Corpuscular Hgb Conc. 34.3 g/dL (32.0-36.0); Mean Corpuscular Volume 82.9 fL (80.0-100.0); Red Blood Cells 3.89 10^6/uL (4.0-5.20); Red Cell Distribution Width 14.5 % (11.8-14.3); White Blood Cell 7.6 10^3/uL (4.4-10.8)
[2021-12-17 04:11] LABS: Band Neutrophils % (manual) 0; Basophils % (manual) 0 (0.0-2.0); Blast Cells 0; Eosinophils % (manual) 0 (0-7); Metamyelocytes % 0; Myelocytes % 0; Promyelocytes % 0; Reactive Lymphocytes 0
[2021-12-17 04:20] LABS: BUN/Creatinine Ratio 65.8; Calcium 7.8 mg/dL (8.5-10.1)
[2021-12-17] MEDS: ceFAZolin 2 GM in D5W 5% 100 ML IV SCH ×3 (05:10→21:01)
[2021-12-17] MEDS: methylPREDNISolone SOD SUCC 40 MG/ML VL IV SCH ×3 (05:11→21:02)
[2021-12-17] MEDS: PROPOFOL 100 ML IV SCH ×2 (05:30→15:30)
[2021-12-17] MEDS: InsuLIN REG 1unit/0.01ml Soln (100units/ml) SC SCH ×4 (05:31→23:37)
[2021-12-17] MEDS: ACCU-CHEK COMFORT CURVE STRIP VI SCH ×4 (05:31→23:37)
[2021-12-17] MEDS: BUDESONIDE (INHALATION) 0.5 MG/2 ML NEB NEB SCH ×2 (06:08→22:07)
[2021-12-17] MEDS: ROCURONIUM 10MG/ML 10ML VIAL IV PRN ×5 (06:45→23:32)
[2021-12-17] MEDS: fentaNYL Drip 2500mCg/250mlNS 250 ML IV SCH ×3 (06:46→23:32)
[2021-12-17 08:26] LABS: Lymphocytes % (manual) 1 (10.0-50.0); Monocytes % (manual) 2 (0-12)
[2021-12-17] MEDS: PANTOPRAZOLE 40 MG/10 ML VIAL INJ IV SCH ×2 (09:59→21:04)
[2021-12-17] MEDS: FUROSEMIDE 40 MG/4 ML VIAL IV SCH (10:00)
[2021-12-17] MEDS: ENOXAPARIN SOD 40 MG/0.4 ML SYRINGE SC SCH (10:00)
[2021-12-17] MEDS: POTASSIUM CHL 20MEQ/100ML 100 ML IV SCH ×3 (10:20→14:00)
[2021-12-17] MEDS ORDERED: chlordiazePOXIDE HCL 25 MG CAP NG PRN (13:15)
[2021-12-17] MEDS: chlordiazePOXIDE HCL 25 MG CAP NG SCH ×3 (14:14→23:37)
[2021-12-17] MEDS: NOREPINEPHRINE 8 MG/250ML KIT 250 ML IV SCH (23:27)
[2021-12-18] VITALS (105 sets, daily range): BP systolic 100–164; BP diastolic 57–101
[2021-12-18] MEDS: ROCURONIUM 10MG/ML 10ML VIAL IV PRN ×7 (00:59→22:05)
[2021-12-18] MEDS: PROPOFOL 100 ML IV SCH ×4 (01:42→17:51)
[2021-12-18] MEDS: ALBUTEROL SULF 2.5 MG/0.5ML(0.5%) NEB SOLN NEB SCH ×6 (02:15→21:57)
[2021-12-18] MEDS: IPRATROPIUM BROM 0.5 MG/2.5ML INH SOL NEB SCH ×6 (02:15→21:57)
[2021-12-18] MEDS: MIDAZOLAM DRIP 50 mg/50mL 50 ML IV SCH ×4 (04:19→19:55)
[2021-12-18 04:24] LABS: Potassium 3.8 mmol/L (3.5-5.1)
[2021-12-18 04:26] LABS: BUN/Creatinine Ratio 65.7
[2021-12-18] MEDS: chlordiazePOXIDE HCL 25 MG CAP NG SCH ×2 (05:00→11:27)
[2021-12-18] MEDS: ceFAZolin 2 GM in D5W 5% 100 ML IV SCH ×3 (05:00→22:09)
[2021-12-18] MEDS: methylPREDNISolone SOD SUCC 40 MG/ML VL IV SCH ×3 (05:01→22:13)
[2021-12-18] MEDS: InsuLIN REG 1unit/0.01ml Soln (100units/ml) SC SCH ×3 (06:00→17:35)
[2021-12-18] MEDS: ACCU-CHEK COMFORT CURVE STRIP VI SCH ×3 (06:10→17:35)
[2021-12-18] MEDS: fentaNYL Drip 2500mCg/250mlNS 250 ML IV SCH ×4 (06:13→19:55)
[2021-12-18] MEDS: BUDESONIDE (INHALATION) 0.5 MG/2 ML NEB NEB SCH ×2 (06:20→18:26)
[2021-12-18] MEDS: PANTOPRAZOLE 40 MG/10 ML VIAL INJ IV SCH ×2 (09:14→22:12)
[2021-12-18] MEDS: FUROSEMIDE 40 MG/4 ML VIAL IV SCH (09:14)
[2021-12-18] MEDS: ENOXAPARIN SOD 40 MG/0.4 ML SYRINGE SC SCH (09:14)
[2021-12-18] MEDS ORDERED: ARTIFICIAL TEARS 15ml EACHEYE PRN (12:00)
[2021-12-19] VITALS (107 sets, daily range): BP systolic 93–175; BP diastolic 57–116
[2021-12-19] MEDS: chlordiazePOXIDE HCL 25 MG CAP NG SCH ×4 (00:19→18:00)
[2021-12-19] MEDS: ACCU-CHEK COMFORT CURVE STRIP VI SCH ×4 (00:20→18:00)
[2021-12-19] MEDS: InsuLIN REG 1unit/0.01ml Soln (100units/ml) SC SCH ×4 (00:36→18:00)
[2021-12-19] MEDS: ROCURONIUM 10MG/ML 10ML VIAL IV PRN ×6 (01:51→23:15)
[2021-12-19] MEDS: IPRATROPIUM BROM 0.5 MG/2.5ML INH SOL NEB SCH ×6 (06:00→22:07)
[2021-12-19] MEDS: ALBUTEROL SULF 2.5 MG/0.5ML(0.5%) NEB SOLN NEB SCH ×6 (06:00→22:07)
[2021-12-19] MEDS: methylPREDNISolone SOD SUCC 40 MG/ML VL IV SCH ×3 (06:15→22:31)
[2021-12-19] MEDS: ceFAZolin 2 GM in D5W 5% 100 ML IV SCH ×3 (06:15→22:31)
[2021-12-19] MEDS: BUDESONIDE (INHALATION) 0.5 MG/2 ML NEB NEB SCH ×2 (06:22→22:07)
[2021-12-19] MEDS: fentaNYL Drip 2500mCg/250mlNS 250 ML IV SCH (09:12)
[2021-12-19] MEDS: PANTOPRAZOLE 40 MG/10 ML VIAL INJ IV SCH ×2 (09:49→22:31)
[2021-12-19] MEDS: ENOXAPARIN SOD 40 MG/0.4 ML SYRINGE SC SCH (09:50)
[2021-12-19] MEDS: FUROSEMIDE 40 MG/4 ML VIAL IV SCH (09:50)
[2021-12-19] MEDS: PROPOFOL 100 ML IV SCH ×2 (11:42→17:13)
[2021-12-19] MEDS ORDERED: LACTULOSE 20Gm/30ML SOLN PO ONE (12:45)
[2021-12-19 14:28] LABS: Calcium 7.9 mg/dL (8.5-10.1); Magnesium 2.2 mg/dL (1.6-2.6); Potassium 3.5 mmol/L (3.5-5.1)
[2021-12-19 14:31] LABS: BUN/Creatinine Ratio 41.3
[2021-12-19] MEDS: MIDAZOLAM DRIP 50 mg/50mL 50 ML IV SCH ×2 (18:55→22:31)
[2021-12-20] VITALS (95 sets, daily range): BP systolic 91–169; BP diastolic 52–112
[2021-12-20] MEDS: chlordiazePOXIDE HCL 25 MG CAP NG SCH ×4 (00:11→17:46)
[2021-12-20] MEDS: ACCU-CHEK COMFORT CURVE STRIP VI SCH ×4 (00:12→17:46)
[2021-12-20] MEDS: PROPOFOL 100 ML IV SCH ×4 (01:20→18:20)
[2021-12-20] MEDS: MIDAZOLAM DRIP 50 mg/50mL 50 ML IV SCH ×7 (01:20→22:04)
[2021-12-20] MEDS: IPRATROPIUM BROM 0.5 MG/2.5ML INH SOL NEB SCH ×4 (02:13→14:06)
[2021-12-20] MEDS: ALBUTEROL SULF 2.5 MG/0.5ML(0.5%) NEB SOLN NEB SCH ×4 (02:13→14:06)
[2021-12-20 04:35] LABS: Chloride 98 mmol/L (98-107); Potassium 3.3 mmol/L (3.5-5.1); Sodium 140 mmol/L (136-145)
[2021-12-20 04:42] LABS: Alanine Aminotransferase 24 U/L (13-56); Albumin 2.7 g/dL (3.4-5.0); Anion Gap 10 (5-15); Aspartate Aminotransferase 19 U/L (15-37); BUN/Creatinine Ratio 37.5; Blood Urea Nitrogen 18 mg/dL (7-18); Carbon Dioxide 32 mmol/L (21-32); GFR African American 184 mL/min; GFR Non-African American 152 mL/min; Glucose 106 mg/dL (74-106)
[2021-12-20 04:45] LABS: Alkaline Phosphatase 80 U/L (45-117); Bilirubin, Total 0.5 mg/dL (0.2-1.0)
[2021-12-20] MEDS: InsuLIN REG 1unit/0.01ml Soln (100units/ml) SC SCH ×4 (06:00→17:46)
[2021-12-20] MEDS: ceFAZolin 2 GM in D5W 5% 100 ML IV SCH ×3 (06:20→22:04)
[2021-12-20] MEDS: methylPREDNISolone SOD SUCC 40 MG/ML VL IV SCH (06:21)
[2021-12-20 07:16] LABS: Hematocrit 35.3 % (36.0-46.0); Hemoglobin 11.4 g/dL (12.2-16.2); Mean Corpuscular Hemoglobin 27.4 pg (28.0-32.0); Mean Corpuscular Hgb Conc. 32.2 g/dL (32.0-36.0); Mean Corpuscular Volume 84.9 fL (80.0-100.0); Red Blood Cells 4.16 10^6/uL (4.0-5.20); Red Cell Distribution Width 14.7 % (11.8-14.3)
[2021-12-20 07:20] LABS: Band Neutrophils % (manual) 0; Basophils % (manual) 0 (0.0-2.0); Blast Cells 0; Eosinophils % (manual) 0 (0-7); Metamyelocytes % 0; Myelocytes % 0; Promyelocytes % 0; Reactive Lymphocytes 0
[2021-12-20 07:33] LABS: INR 1.13 (0.9-1.15); Lymphocytes % (manual) 1 (10.0-50.0); Monocytes % (manual) 3 (0-12); Partial Thromboplastin Time < 20.0 sec (24.6-33.4)
[2021-12-20] MEDS: ROCURONIUM 10MG/ML 10ML VIAL IV PRN ×2 (07:33→10:08)
[2021-12-20] MEDS: NOREPINEPHRINE 8 MG/250ML KIT 250 ML IV SCH (09:30)
[2021-12-20] MEDS: ENOXAPARIN SOD 40 MG/0.4 ML SYRINGE SC SCH (09:33)
[2021-12-20] MEDS: PANTOPRAZOLE 40 MG/10 ML VIAL INJ IV SCH ×2 (09:33→22:03)
[2021-12-20] MEDS: FUROSEMIDE 40 MG/4 ML VIAL IV SCH (09:33)
[2021-12-20] MEDS: BUDESONIDE (INHALATION) 0.5 MG/2 ML NEB NEB SCH (10:00)
[2021-12-20] MEDS: POTASSIUM CHL 20MEQ/100ML 100 ML IV SCH ×2 (13:11→14:39)
[2021-12-20] MEDS ORDERED: methylPREDNISolone SOD SUCC 125 MG/2 ML VL ONE (13:58)
[2021-12-20] MEDS: fentaNYL Drip 2500mCg/250mlNS 250 ML IV SCH (19:21)
[2021-12-20] MEDS: methylPREDNISolone SOD SUCC 125 MG/2 ML VL IV SCH (22:03)
[2021-12-21] VITALS (95 sets, daily range): BP systolic 101–158; BP diastolic 59–102
[2021-12-21] MEDS: chlordiazePOXIDE HCL 25 MG CAP NG SCH ×4 (00:55→17:24)
[2021-12-21] MEDS: PROPOFOL 100 ML IV SCH ×3 (01:15→19:43)
[2021-12-21] MEDS: MIDAZOLAM DRIP 50 mg/50mL 50 ML IV SCH ×6 (01:15→19:44)
[2021-12-21] MEDS: BUDESONIDE (INHALATION) 0.5 MG/2 ML NEB NEB SCH ×3 (01:18→18:39)
[2021-12-21] MEDS: IPRATROPIUM BROM 0.5 MG/2.5ML INH SOL NEB SCH ×7 (01:18→22:36)
[2021-12-21] MEDS: ALBUTEROL SULF 2.5 MG/0.5ML(0.5%) NEB SOLN NEB SCH ×7 (01:18→22:36)
[2021-12-21] MEDS: ROCURONIUM 10MG/ML 10ML VIAL IV PRN (03:17)
[2021-12-21] MEDS: InsuLIN REG 1unit/0.01ml Soln (100units/ml) SC SCH ×4 (06:00→17:25)
[2021-12-21] MEDS: ACCU-CHEK COMFORT CURVE STRIP VI SCH ×4 (06:00→17:25)
[2021-12-21] MEDS: methylPREDNISolone SOD SUCC 125 MG/2 ML VL IV SCH ×3 (06:21→22:09)
[2021-12-21] MEDS: ceFAZolin 2 GM in D5W 5% 100 ML IV SCH ×3 (06:22→22:32)
[2021-12-21] MEDS: fentaNYL Drip 2500mCg/250mlNS 250 ML IV SCH ×2 (08:27→20:55)
[2021-12-21] MEDS: PANTOPRAZOLE 40 MG/10 ML VIAL INJ IV SCH ×2 (09:44→22:08)
[2021-12-21] MEDS: ENOXAPARIN SOD 40 MG/0.4 ML SYRINGE SC SCH (09:44)
[2021-12-21] MEDS: FUROSEMIDE 40 MG/4 ML VIAL IV SCH (09:45)
[2021-12-21] MEDS: NOREPINEPHRINE 8 MG/250ML KIT 250 ML IV SCH (09:47)
[2021-12-21 10:34] LABS: Basophils # (auto) 0.1 10 ^3/uL (0-0.2); Basophils % (auto) 0.6 % (0.0-2.0); Eosinophils # (auto) 0 10 ^3/uL (0-0.8); Hematocrit 33.2 % (36.0-46.0); Hemoglobin 10.8 g/dL (12.2-16.2); Lymphocytes # (auto) 0.3 10 ^3/uL (0.4-5.4); Lymphocytes % (auto) 1.3 % (10.0-50.0); Mean Corpuscular Hemoglobin 27.5 pg (28.0-32.0); Mean Corpuscular Hgb Conc. 32.7 g/dL (32.0-36.0); Mean Corpuscular Volume 84.3 fL (80.0-100.0); Monocytes # (auto) 0.6 10 ^3/uL (0-1.3); Monocytes % (auto) 3.1 % (0.0-12.0); Neutrophils # (auto) 18.8 10 ^3/uL (1.6-8.6); Nucleated Red Blood Cells % 0.1 %; Red Blood Cells 3.94 10^6/uL (4.0-5.20); White Blood Cell 19.8 10^3/uL (4.4-10.8)
[2021-12-21 10:50] LABS: Calcium 8.1 mg/dL (8.5-10.1); Potassium 3.4 mmol/L (3.5-5.1)
[2021-12-21 10:59] LABS: BUN/Creatinine Ratio 41.9; Bilirubin, Total 0.5 mg/dL (0.2-1.0); Total Protein 5.2 g/dL (6.4-8.2)
[2021-12-21] MEDS ORDERED: POTASSIUM CHLORIDE 40 MEQ, LIDOCAINE 1% (LOCAL ANESTH.) 4 ML in SODIUM CHL 0.9% 250 ML IV ONE (15:00)
[2021-12-22] VITALS (105 sets, daily range): BP systolic 89–168; BP diastolic 54–104
[2021-12-22] MEDS: chlordiazePOXIDE HCL 25 MG CAP NG SCH ×4 (00:35→17:05)
[2021-12-22] MEDS: PROPOFOL 100 ML IV SCH ×3 (00:36→15:49)
[2021-12-22] MEDS: MIDAZOLAM DRIP 50 mg/50mL 50 ML IV SCH ×6 (00:37→20:17)
[2021-12-22] MEDS: InsuLIN REG 1unit/0.01ml Soln (100units/ml) SC SCH ×4 (00:49→17:34)
[2021-12-22] MEDS: ACCU-CHEK COMFORT CURVE STRIP VI SCH ×4 (00:54→17:13)
[2021-12-22] MEDS: ALBUTEROL SULF 2.5 MG/0.5ML(0.5%) NEB SOLN NEB SCH ×6 (03:06→22:30)
[2021-12-22] MEDS: IPRATROPIUM BROM 0.5 MG/2.5ML INH SOL NEB SCH ×6 (03:06→22:30)
[2021-12-22 04:05] LABS: Eosinophils # (auto) 0 10 ^3/uL (0-0.8); Monocytes # (auto) 0.5 10 ^3/uL (0-1.3)
[2021-12-22 04:07] LABS: Basophils # (auto) 0.1 10 ^3/uL (0-0.2); Basophils % (auto) 0.6 % (0.0-2.0); Hematocrit 35.1 % (36.0-46.0); Hemoglobin 11.8 g/dL (12.2-16.2); Lymphocytes # (auto) 0.3 10 ^3/uL (0.4-5.4); Mean Corpuscular Hemoglobin 27.9 pg (28.0-32.0); Mean Corpuscular Hgb Conc. 33.6 g/dL (32.0-36.0); Mean Corpuscular Volume 83.1 fL (80.0-100.0); Monocytes % (auto) 3.5 % (0.0-12.0); Neutrophils # (auto) 12.4 10 ^3/uL (1.6-8.6); Neutrophils % (auto) 93.9 % (37.0-80.0); Red Blood Cells 4.22 10^6/uL (4.0-5.20); Red Cell Distribution Width 15.1 % (11.8-14.3); White Blood Cell 13.2 10^3/uL (4.4-10.8)
[2021-12-22 04:16] LABS: Anion Gap 9 (5-15); BUN/Creatinine Ratio 38.9; Blood Urea Nitrogen 14 mg/dL (7-18); Calcium 7.9 mg/dL (8.5-10.1); Carbon Dioxide 30 mmol/L (21-32); Chloride 100 mmol/L (98-107); GFR African American 257 mL/min; GFR Non-African American 212 mL/min; Glucose 145 mg/dL (74-106); Sodium 139 mmol/L (136-145)
[2021-12-22 04:36] LABS: Potassium 2.9 mmol/L (3.5-5.1)
[2021-12-22 04:56] LABS: INR 1.02 (0.9-1.15)
[2021-12-22] MEDS: methylPREDNISolone SOD SUCC 125 MG/2 ML VL IV SCH ×3 (05:41→22:13)
[2021-12-22] MEDS: POTASSIUM CHL 20MEQ/100ML 100 ML IV SCH ×4 (05:48→12:30)
[2021-12-22] MEDS: ceFAZolin 2 GM in D5W 5% 100 ML IV SCH ×3 (05:50→22:14)
[2021-12-22] MEDS: BUDESONIDE (INHALATION) 0.5 MG/2 ML NEB NEB SCH ×2 (06:15→22:30)
[2021-12-22] MEDS: fentaNYL Drip 2500mCg/250mlNS 250 ML IV SCH ×2 (10:13→18:48)
[2021-12-22 10:43] LABS: Partial Thromboplastin Time 23.9 sec (24.6-33.4)
[2021-12-22] MEDS: PANTOPRAZOLE 40 MG/10 ML VIAL INJ IV SCH ×2 (10:44→22:13)
[2021-12-22] MEDS: FUROSEMIDE 40 MG/4 ML VIAL IV SCH (10:44)
[2021-12-22] MEDS: ROCURONIUM 10MG/ML 10ML VIAL IV PRN (15:18)
[2021-12-22 20:12] LABS: Magnesium 2.1 mg/dL (1.6-2.6); Potassium 3.7 mmol/L (3.5-5.1)
[2021-12-22] MEDS: NOREPINEPHRINE 8 MG/250ML KIT 250 ML IV SCH (23:30)
[2021-12-23] VITALS (71 sets, daily range): BP systolic 100–157; BP diastolic 58–92
[2021-12-23] MEDS: ACCU-CHEK COMFORT CURVE STRIP VI SCH ×4 (00:02→18:15)
[2021-12-23] MEDS: chlordiazePOXIDE HCL 25 MG CAP NG SCH ×2 (00:02→06:00)
[2021-12-23] MEDS: PROPOFOL 100 ML IV SCH ×5 (00:36→23:03)
[2021-12-23] MEDS: MIDAZOLAM DRIP 50 mg/50mL 50 ML IV SCH ×7 (00:37→20:14)
[2021-12-23] MEDS: IPRATROPIUM BROM 0.5 MG/2.5ML INH SOL NEB SCH ×6 (02:44→22:14)
[2021-12-23] MEDS: ALBUTEROL SULF 2.5 MG/0.5ML(0.5%) NEB SOLN NEB SCH ×6 (02:44→22:14)
[2021-12-23] MEDS: ceFAZolin 2 GM in D5W 5% 100 ML IV SCH ×3 (05:59→22:32)
[2021-12-23] MEDS: methylPREDNISolone SOD SUCC 125 MG/2 ML VL IV SCH ×3 (05:59→22:31)
[2021-12-23] MEDS: InsuLIN REG 1unit/0.01ml Soln (100units/ml) SC SCH ×4 (06:00→18:00)
[2021-12-23] MEDS: BUDESONIDE (INHALATION) 0.5 MG/2 ML NEB NEB SCH ×2 (06:01→22:14)
[2021-12-23] MEDS: fentaNYL Drip 2500mCg/250mlNS 250 ML IV SCH ×3 (06:27→20:08)
[2021-12-23] MEDS: ROCURONIUM 10MG/ML 10ML VIAL IV PRN (07:11)
[2021-12-23 07:37] LABS: Basophils # (auto) 0 10 ^3/uL (0-0.2); Basophils % (auto) 0.2 % (0.0-2.0); Eosinophils # (auto) 0 10 ^3/uL (0-0.8); Hematocrit 32.6 % (36.0-46.0); Hemoglobin 10.5 g/dL (12.2-16.2); Lymphocytes # (auto) 0.2 10 ^3/uL (0.4-5.4); Lymphocytes % (auto) 1.3 % (10.0-50.0); Mean Corpuscular Hemoglobin 27.3 pg (28.0-32.0); Mean Corpuscular Hgb Conc. 32.2 g/dL (32.0-36.0); Mean Corpuscular Volume 84.7 fL (80.0-100.0); Monocytes # (auto) 0.6 10 ^3/uL (0-1.3); Monocytes % (auto) 3.5 % (0.0-12.0); Neutrophils # (auto) 15.2 10 ^3/uL (1.6-8.6); Red Blood Cells 3.85 10^6/uL (4.0-5.20); Red Cell Distribution Width 15.2 % (11.8-14.3)
[2021-12-23 07:44] LABS: Albumin 2.3 g/dL (3.4-5.0)
[2021-12-23 07:46] LABS: Bilirubin, Total 0.5 mg/dL (0.2-1.0); Total Protein 5.6 g/dL (6.4-8.2)
[2021-12-23 07:51] LABS: INR 0.97 (0.9-1.15)
[2021-12-23] MEDS ORDERED: MIDAZOLAM HCL 2MG/2ML 2ml VIAL (1mg/ml) ONE (07:57)
[2021-12-23] MEDS ORDERED: fentaNYL CITRATE 100 MCG/2 ML VL ONE (07:57)
[2021-12-23] MEDS ORDERED: ROCURONIUM 10MG/ML 10ML VIAL IV ONE (07:57)
[2021-12-23] MEDS ORDERED: DexAMETHasone SOD PHOS 10MG/1ML VIAL INJ ONE (07:58)
[2021-12-23] MEDS ORDERED: PROPOFOL 10 MG/ML 20 ML IV ONE (07:58)
[2021-12-23] MEDS ORDERED: SODIUM CHLORIDE LOCK 10 ML ONE (07:58)
[2021-12-23] MEDS ORDERED: BUPIVACAINE 0.25% INJ 50ML VIAL IJ ONE (08:00)
[2021-12-23] MEDS ORDERED: BUPIVACAINE W/ EPINEPH 0.25% INJ 50ML MDV IJ ONE (08:00)
[2021-12-23] MEDS ORDERED: EPINEPHrine HCL 1 MG/1 ML AMP ONE (08:19)
[2021-12-23] MEDS: PANTOPRAZOLE 40 MG/10 ML VIAL INJ IV SCH ×2 (08:58→22:31)
[2021-12-23] MEDS: FUROSEMIDE 40 MG/4 ML VIAL IV SCH (09:00)
[2021-12-23 09:04] LABS: Partial Thromboplastin Time 22.8 sec (24.6-33.4)
[2021-12-23] MEDS ORDERED: BUPIVACAINE 0.25% INJ 50ML VIAL ONE (09:09)
[2021-12-23] MEDS ORDERED: TPN PER PHARMACY 0 ML IV SCH (11:15)
[2021-12-23 11:59] LABS: Magnesium 2.2 mg/dL (1.6-2.6); Phosphorus 3.2 mg/dL (2.5-4.90)
[2021-12-23] MEDS: chlordiazePOXIDE HCL 25 MG CAP PO PRN ×2 (12:00→20:19)
[2021-12-23] MEDS: METOCLOPRAMIDE HCL 5MG/ml INJ 2ml VIAL IV SCH ×2 (16:05→22:32)
[2021-12-23] MEDS ORDERED: AMINO ACID INFUSION IN D10W 1,000 ML IV NR (20:00)
[2021-12-23] MEDS: QUEtiapine FUMARATE 25 MG TAB PO SCH (22:31)
[2021-12-23] MEDS: NOREPINEPHRINE 8 MG/250ML KIT 250 ML IV SCH (23:30)
[2021-12-24] VITALS (102 sets, daily range): BP systolic 85–178; BP diastolic 48–108
[2021-12-24] MEDS: MIDAZOLAM DRIP 50 mg/50mL 50 ML IV SCH ×7 (00:23→21:00)
[2021-12-24] MEDS: InsuLIN REG 1unit/0.01ml Soln (100units/ml) SC SCH ×4 (00:29→18:15)
[2021-12-24] MEDS: ACCU-CHEK COMFORT CURVE STRIP VI SCH ×4 (00:32→18:15)
[2021-12-24] MEDS: IPRATROPIUM BROM 0.5 MG/2.5ML INH SOL NEB SCH ×6 (02:09→22:15)
[2021-12-24] MEDS: ALBUTEROL SULF 2.5 MG/0.5ML(0.5%) NEB SOLN NEB SCH ×6 (02:09→22:15)
[2021-12-24] MEDS: ROCURONIUM 10MG/ML 10ML VIAL IV PRN ×4 (03:01→23:53)
[2021-12-24] MEDS: PROPOFOL 100 ML IV SCH ×4 (03:29→18:53)
[2021-12-24 04:21] LABS: Basophils # (auto) 0 10 ^3/uL (0-0.2); Basophils % (auto) 0.3 % (0.0-2.0); Eosinophils # (auto) 0 10 ^3/uL (0-0.8); Hematocrit 31.5 % (36.0-46.0); Hemoglobin 10.5 g/dL (12.2-16.2); Lymphocytes # (auto) 0.2 10 ^3/uL (0.4-5.4); Lymphocytes % (auto) 1.4 % (10.0-50.0); Mean Corpuscular Hemoglobin 27.7 pg (28.0-32.0); Mean Corpuscular Hgb Conc. 33.2 g/dL (32.0-36.0); Mean Corpuscular Volume 83.6 fL (80.0-100.0); Monocytes # (auto) 0.7 10 ^3/uL (0-1.3); Monocytes % (auto) 5.2 % (0.0-12.0); Neutrophils # (auto) 12.1 10 ^3/uL (1.6-8.6); Neutrophils % (auto) 93.1 % (37.0-80.0); Red Blood Cells 3.77 10^6/uL (4.0-5.20)
[2021-12-24 04:34] LABS: Albumin 2.2 g/dL (3.4-5.0); Calcium 7.9 mg/dL (8.5-10.1); Magnesium 1.8 mg/dL (1.6-2.6)
[2021-12-24 04:39] LABS: BUN/Creatinine Ratio 38.9; Bilirubin, Total 0.5 mg/dL (0.2-1.0); Phosphorus 2.1 mg/dL (2.5-4.90); Total Protein 5.4 g/dL (6.4-8.2)
[2021-12-24 04:51] LABS: Potassium 2.8 mmol/L (3.5-5.1)
[2021-12-24] MEDS: METOCLOPRAMIDE HCL 5MG/ml INJ 2ml VIAL IV SCH ×3 (05:41→22:00)
[2021-12-24] MEDS: methylPREDNISolone SOD SUCC 125 MG/2 ML VL IV SCH ×3 (05:41→22:00)
[2021-12-24] MEDS: POTASSIUM CHL 20MEQ/100ML 100 ML IV SCH ×4 (05:57→21:00)
[2021-12-24] MEDS: ceFAZolin 2 GM in D5W 5% 100 ML IV SCH ×3 (06:02→22:00)
[2021-12-24] MEDS: BUDESONIDE (INHALATION) 0.5 MG/2 ML NEB NEB SCH ×2 (06:31→22:15)
[2021-12-24] MEDS: fentaNYL Drip 2500mCg/250mlNS 250 ML IV SCH ×2 (09:07→20:00)
[2021-12-24] MEDS ORDERED: POTASSIUM PHOSPHATE 44 MEQ in D5W 5% 250 ML IV ONE (09:30)
[2021-12-24] MEDS: PANTOPRAZOLE 40 MG/10 ML VIAL INJ IV SCH ×2 (10:21→22:00)
[2021-12-24] MEDS: FUROSEMIDE 40 MG/4 ML VIAL IV SCH (10:22)
[2021-12-24] MEDS ORDERED: DEXTROSE (50%) 50ML SYRG IV SCH (12:00)
[2021-12-24] MEDS ORDERED: LIDOCAINE 1% (LOCAL ANESTH.) PF 5ml SDV ID ONE (18:45)
[2021-12-24] MEDS ORDERED: ceFAZolin 1GM/50ML 50 ML IV ONE (18:45)
[2021-12-24] MEDS ORDERED: TPN PER PHARMACY IV NR ×9 (20:00)
[2021-12-24] MEDS: QUEtiapine FUMARATE 25 MG TAB PO SCH (22:00)
[2021-12-24] MEDS: SODIUM CHLOR 0.9% PF (SALINE LOCK) 10ML VIAL/SYR IV SCH (22:00)
[2021-12-24] MEDS: NOREPINEPHRINE 8 MG/250ML KIT 250 ML IV SCH (23:30)
[2021-12-25] VITALS (104 sets, daily range): BP systolic 98–168; BP diastolic 53–108
[2021-12-25] MEDS: PROPOFOL 100 ML IV SCH ×4 (01:40→21:30)
[2021-12-25] MEDS: MIDAZOLAM DRIP 50 mg/50mL 50 ML IV SCH ×6 (01:50→23:15)
[2021-12-25] MEDS: ROCURONIUM 10MG/ML 10ML VIAL IV PRN ×5 (01:51→22:00)
[2021-12-25] MEDS: IPRATROPIUM BROM 0.5 MG/2.5ML INH SOL NEB SCH ×6 (02:04→21:07)
[2021-12-25] MEDS: ALBUTEROL SULF 2.5 MG/0.5ML(0.5%) NEB SOLN NEB SCH ×6 (02:04→21:07)
[2021-12-25 05:19] LABS: Calcium 7.7 mg/dL (8.5-10.1); Chloride 102 mmol/L (98-107); Glucose 178 mg/dL (74-106); Magnesium 2.1 mg/dL (1.6-2.6); Potassium 3.8 mmol/L (3.5-5.1); Sodium 139 mmol/L (136-145)
[2021-12-25 05:22] LABS: Albumin 2.3 g/dL (3.4-5.0); Anion Gap 6 (5-15); Aspartate Aminotransferase 12 U/L (15-37); BUN/Creatinine Ratio 58.3; Blood Urea Nitrogen 14 mg/dL (7-18); Carbon Dioxide 31 mmol/L (21-32); GFR African American 410 mL/min; GFR Non-African American 339 mL/min
[2021-12-25 05:26] LABS: Alanine Aminotransferase 28 U/L (13-56); Alkaline Phosphatase 84 U/L (45-117); Bilirubin, Total 0.4 mg/dL (0.2-1.0); Phosphorus 2.5 mg/dL (2.5-4.90); Total Protein 5.4 g/dL (6.4-8.2)
[2021-12-25] MEDS ORDERED: ceFAZolin 1GM/50ML 50 ML IV ONE (05:31)
[2021-12-25] MEDS: ACCU-CHEK COMFORT CURVE STRIP VI SCH ×4 (05:48→17:27)
[2021-12-25] MEDS: InsuLIN REG 1unit/0.01ml Soln (100units/ml) SC SCH ×4 (05:49→17:26)
[2021-12-25] MEDS: methylPREDNISolone SOD SUCC 125 MG/2 ML VL IV SCH ×3 (06:00→22:00)
[2021-12-25] MEDS: ceFAZolin 2 GM in D5W 5% 100 ML IV SCH ×3 (06:00→22:00)
[2021-12-25] MEDS: METOCLOPRAMIDE HCL 5MG/ml INJ 2ml VIAL IV SCH ×3 (06:00→22:00)
[2021-12-25] MEDS: BUDESONIDE (INHALATION) 0.5 MG/2 ML NEB NEB SCH ×2 (06:52→17:40)
[2021-12-25] MEDS: fentaNYL Drip 2500mCg/250mlNS 250 ML IV SCH ×2 (08:55→21:00)
[2021-12-25] MEDS: PANTOPRAZOLE 40 MG/10 ML VIAL INJ IV SCH ×2 (10:02→22:00)
[2021-12-25] MEDS: FUROSEMIDE 40 MG/4 ML VIAL IV SCH (10:05)
[2021-12-25] MEDS: SODIUM CHLOR 0.9% PF (SALINE LOCK) 10ML VIAL/SYR IV SCH ×2 (10:05→22:00)
[2021-12-25] MEDS ORDERED: POTASSIUM PHOSPHATE 22 MEQ in SODIUM CHL 0.9% 100 ML IV ONE (11:00)
[2021-12-25] MEDS: chlordiazePOXIDE HCL 25 MG CAP PO SCH (17:15)
[2021-12-25] MEDS ORDERED: chlordiazePOXIDE HCL 25 MG CAP PO PRN (18:00)
[2021-12-25] MEDS ORDERED: TPN PER PHARMACY IV NR ×8 (20:00)
[2021-12-25] MEDS: QUEtiapine FUMARATE 25 MG TAB PO SCH (22:00)
[2021-12-26] VITALS (108 sets, daily range): BP systolic 87–160; BP diastolic 43–104
[2021-12-26] MEDS: ACCU-CHEK COMFORT CURVE STRIP VI SCH ×5 (00:09→23:45)
[2021-12-26] MEDS: InsuLIN REG 1unit/0.01ml Soln (100units/ml) SC SCH ×5 (00:10→23:53)
[2021-12-26] MEDS: ROCURONIUM 10MG/ML 10ML VIAL IV PRN ×7 (00:16→23:55)
[2021-12-26] MEDS: ALBUTEROL SULF 2.5 MG/0.5ML(0.5%) NEB SOLN NEB SCH ×6 (02:05→22:29)
[2021-12-26] MEDS: IPRATROPIUM BROM 0.5 MG/2.5ML INH SOL NEB SCH ×6 (02:05→22:29)
[2021-12-26] MEDS: PROPOFOL 100 ML IV SCH ×6 (02:56→21:59)
[2021-12-26] MEDS: MIDAZOLAM DRIP 50 mg/50mL 50 ML IV SCH ×6 (03:00→21:33)
[2021-12-26 04:03] LABS: Albumin 2.3 g/dL (3.4-5.0); BUN/Creatinine Ratio 94.4; Calcium 7.7 mg/dL (8.5-10.1); Magnesium 2.3 mg/dL (1.6-2.6); Potassium 3.6 mmol/L (3.5-5.1)
[2021-12-26 04:06] LABS: Bilirubin, Total 0.3 mg/dL (0.2-1.0); Phosphorus 2.4 mg/dL (2.5-4.90); Total Protein 5.2 g/dL (6.4-8.2)
[2021-12-26 04:28] LABS: Basophils # (auto) 0 10 ^3/uL (0-0.2); Basophils % (auto) 0.3 % (0.0-2.0); Eosinophils # (auto) 0 10 ^3/uL (0-0.8); Hematocrit 32.2 % (36.0-46.0); Hemoglobin 10.4 g/dL (12.2-16.2); Lymphocytes # (auto) 0.2 10 ^3/uL (0.4-5.4); Lymphocytes % (auto) 1.3 % (10.0-50.0); Mean Corpuscular Hemoglobin 27.5 pg (28.0-32.0); Mean Corpuscular Hgb Conc. 32.2 g/dL (32.0-36.0); Mean Corpuscular Volume 85.5 fL (80.0-100.0); Monocytes # (auto) 0.4 10 ^3/uL (0-1.3); Neutrophils # (auto) 12.4 10 ^3/uL (1.6-8.6); Neutrophils % (auto) 95.4 % (37.0-80.0); Red Blood Cells 3.76 10^6/uL (4.0-5.20); Red Cell Distribution Width 15.4 % (11.8-14.3)
[2021-12-26] MEDS: BUDESONIDE (INHALATION) 0.5 MG/2 ML NEB NEB SCH ×2 (05:50→19:17)
[2021-12-26] MEDS: Ensure Enlive Vanilla 8oz Bottle PO SCH ×8 (06:00→23:00)
[2021-12-26] MEDS: METOCLOPRAMIDE HCL 5MG/ml INJ 2ml VIAL IV SCH ×3 (06:15→21:35)
[2021-12-26] MEDS: chlordiazePOXIDE HCL 25 MG CAP PO SCH ×5 (06:15→23:41)
[2021-12-26] MEDS: methylPREDNISolone SOD SUCC 125 MG/2 ML VL IV SCH ×3 (06:15→21:36)
[2021-12-26] MEDS: ceFAZolin 2 GM in D5W 5% 100 ML IV SCH ×3 (06:15→21:38)
[2021-12-26] MEDS: fentaNYL Drip 2500mCg/250mlNS 250 ML IV SCH ×2 (09:11→21:34)
[2021-12-26] MEDS: FUROSEMIDE 40 MG/4 ML VIAL IV SCH (09:57)
[2021-12-26] MEDS: SODIUM CHLOR 0.9% PF (SALINE LOCK) 10ML VIAL/SYR IV SCH ×2 (09:58→21:35)
[2021-12-26] MEDS: PANTOPRAZOLE 40 MG/10 ML VIAL INJ IV SCH ×2 (09:58→21:35)
[2021-12-26] MEDS ORDERED: POTASSIUM PHOSPHATE 22 MEQ in SODIUM CHL 0.9% 100 ML IV ONE (10:45)
[2021-12-26] MEDS ORDERED: TPN PER PHARMACY IV NR ×9 (20:00)
[2021-12-26] MEDS: LACTULOSE 20Gm/30ML SOLN PO SCH (21:35)
[2021-12-26] MEDS: QUEtiapine FUMARATE 25 MG TAB PO SCH (21:36)
[2021-12-26] MEDS: NOREPINEPHRINE 8 MG/250ML KIT 250 ML IV SCH (23:30)
[2021-12-27] VITALS (104 sets, daily range): BP systolic 97–177; BP diastolic 53–107
[2021-12-27] MEDS: Ensure Enlive Vanilla 8oz Bottle PO SCH ×6 (01:00→06:18)
[2021-12-27] MEDS: MIDAZOLAM DRIP 50 mg/50mL 50 ML IV SCH ×5 (01:47→21:43)
[2021-12-27] MEDS: ROCURONIUM 10MG/ML 10ML VIAL IV PRN ×4 (02:24→07:41)
[2021-12-27] MEDS: PROPOFOL 100 ML IV SCH ×3 (03:01→17:21)
[2021-12-27] MEDS: ALBUTEROL SULF 2.5 MG/0.5ML(0.5%) NEB SOLN NEB SCH ×6 (03:19→22:07)
[2021-12-27] MEDS: IPRATROPIUM BROM 0.5 MG/2.5ML INH SOL NEB SCH ×6 (03:19→22:07)
[2021-12-27 04:39] LABS: BUN/Creatinine Ratio 70.8; Calcium 7.3 mg/dL (8.5-10.1); Phosphorus 2.9 mg/dL (2.5-4.90); Potassium 3.7 mmol/L (3.5-5.1)
[2021-12-27] MEDS: ceFAZolin 2 GM in D5W 5% 100 ML IV SCH ×3 (05:11→21:44)
[2021-12-27] MEDS: methylPREDNISolone SOD SUCC 125 MG/2 ML VL IV SCH ×3 (05:13→21:41)
[2021-12-27] MEDS: METOCLOPRAMIDE HCL 5MG/ml INJ 2ml VIAL IV SCH ×3 (05:13→21:40)
[2021-12-27] MEDS: LACTULOSE 20Gm/30ML SOLN PO SCH ×3 (05:13→21:41)
[2021-12-27] MEDS: chlordiazePOXIDE HCL 25 MG CAP PO SCH ×3 (05:13→17:27)
[2021-12-27] MEDS: BUDESONIDE (INHALATION) 0.5 MG/2 ML NEB NEB SCH ×2 (06:17→18:48)
[2021-12-27] MEDS: ACCU-CHEK COMFORT CURVE STRIP VI SCH ×3 (06:17→17:28)
[2021-12-27] MEDS: InsuLIN REG 1unit/0.01ml Soln (100units/ml) SC SCH ×3 (06:18→17:43)
[2021-12-27] MEDS ORDERED: CALCIUM GLUC 1,000mg/50ml-NS 0 ML IV ONE (06:48)
[2021-12-27] MEDS: fentaNYL Drip 2500mCg/250mlNS 250 ML IV SCH ×3 (06:54→21:43)
[2021-12-27] MEDS ORDERED: ALBUTEROL SULF 2.5 MG/0.5ML(0.5%) NEB SOLN NEB SCH (09:00)
[2021-12-27] MEDS: FUROSEMIDE 40 MG/4 ML VIAL IV SCH (09:58)
[2021-12-27] MEDS: PANTOPRAZOLE 40 MG/10 ML VIAL INJ IV SCH ×2 (09:59→21:40)
[2021-12-27] MEDS: SODIUM CHLOR 0.9% PF (SALINE LOCK) 10ML VIAL/SYR IV SCH ×2 (10:11→21:40)
[2021-12-27] MEDS ORDERED: CALCIUM GLUC 1,000mg/50ml-NS 50 ML IV ONE (10:45)
[2021-12-27] MEDS ORDERED: TPN PER PHARMACY IV NR ×9 (20:00)
[2021-12-27] MEDS: QUEtiapine FUMARATE 25 MG TAB PO SCH (21:42)
[2021-12-27] MEDS: NOREPINEPHRINE 8 MG/250ML KIT 250 ML IV SCH (23:30)
[2021-12-28] VITALS (92 sets, daily range): BP systolic 88–164; BP diastolic 49–105
[2021-12-28] MEDS: chlordiazePOXIDE HCL 25 MG CAP PO SCH ×5 (00:30→23:47)
[2021-12-28] MEDS: ACCU-CHEK COMFORT CURVE STRIP VI SCH ×6 (00:30→23:47)
[2021-12-28] MEDS: InsuLIN REG 1unit/0.01ml Soln (100units/ml) SC SCH ×5 (00:30→23:46)
[2021-12-28] MEDS: ALBUTEROL SULF 2.5 MG/0.5ML(0.5%) NEB SOLN NEB SCH ×7 (00:31→22:29)
[2021-12-28] MEDS: IPRATROPIUM BROM 0.5 MG/2.5ML INH SOL NEB SCH ×7 (00:31→22:29)
[2021-12-28] MEDS: ROCURONIUM 10MG/ML 10ML VIAL IV PRN (05:15)
[2021-12-28 05:45] LABS: Potassium 3.6 mmol/L (3.5-5.1)
[2021-12-28 05:54] LABS: Albumin 2.2 g/dL (3.4-5.0); BUN/Creatinine Ratio 111.1; Bilirubin, Total 0.3 mg/dL (0.2-1.0); Calcium 7.9 mg/dL (8.5-10.1); Magnesium 1.9 mg/dL (1.6-2.6); Phosphorus 3.1 mg/dL (2.5-4.90); Total Protein 5.1 g/dL (6.4-8.2)
[2021-12-28] MEDS: LACTULOSE 20Gm/30ML SOLN PO SCH (06:00)
[2021-12-28] MEDS: BUDESONIDE (INHALATION) 0.5 MG/2 ML NEB NEB SCH ×2 (06:24→22:29)
[2021-12-28] MEDS: methylPREDNISolone SOD SUCC 125 MG/2 ML VL IV SCH ×3 (06:30→21:50)
[2021-12-28] MEDS: METOCLOPRAMIDE HCL 5MG/ml INJ 2ml VIAL IV SCH ×3 (06:30→21:50)
[2021-12-28] MEDS: ceFAZolin 2 GM in D5W 5% 100 ML IV SCH ×3 (06:30→21:50)
[2021-12-28] MEDS: MIDAZOLAM DRIP 50 mg/50mL 50 ML IV SCH ×6 (08:21→22:44)
[2021-12-28] MEDS: fentaNYL Drip 2500mCg/250mlNS 250 ML IV SCH ×2 (08:54→19:38)
[2021-12-28] MEDS: FUROSEMIDE 40 MG/4 ML VIAL IV SCH (11:00)
[2021-12-28] MEDS: PANTOPRAZOLE 40 MG/10 ML VIAL INJ IV SCH ×2 (11:00→21:51)
[2021-12-28] MEDS: SODIUM CHLOR 0.9% PF (SALINE LOCK) 10ML VIAL/SYR IV SCH ×2 (11:01→21:51)
[2021-12-28] MEDS: PROPOFOL 100 ML IV SCH ×3 (12:04→21:09)
[2021-12-28] MEDS ORDERED: QUEtiapine FUMARATE 25 MG TAB PO ONE (13:15)
[2021-12-28] MEDS ORDERED: LACTULOSE 20Gm/30ML SOLN PO PRN (13:15)
[2021-12-28] MEDS: Jevity 1.2 Cal/Fiber 1 Liter GT SCH (17:46)
[2021-12-28] MEDS ORDERED: TPN PER PHARMACY IV NR ×9 (20:00)
[2021-12-28] MEDS: QUEtiapine FUMARATE 25 MG TAB PO SCH ×2 (21:51→21:57)
[2021-12-28] MEDS: NOREPINEPHRINE 8 MG/250ML KIT 250 ML IV SCH (23:30)
[2021-12-29] VITALS (93 sets, daily range): BP systolic 84–127; BP diastolic 46–97
[2021-12-29] MEDS: MIDAZOLAM DRIP 50 mg/50mL 50 ML IV SCH ×5 (01:55→20:51)
[2021-12-29] MEDS: PROPOFOL 100 ML IV SCH ×4 (01:55→13:59)
[2021-12-29] MEDS: ALBUTEROL SULF 2.5 MG/0.5ML(0.5%) NEB SOLN NEB SCH ×6 (02:28→22:18)
[2021-12-29] MEDS: IPRATROPIUM BROM 0.5 MG/2.5ML INH SOL NEB SCH ×6 (02:28→22:18)
[2021-12-29 03:59] LABS: Albumin 2.1 g/dL (3.4-5.0); Calcium 7.6 mg/dL (8.5-10.1); Magnesium 2.2 mg/dL (1.6-2.6); Potassium 4.2 mmol/L (3.5-5.1)
[2021-12-29 04:02] LABS: Bilirubin, Total 0.2 mg/dL (0.2-1.0); Phosphorus 3.3 mg/dL (2.5-4.90); Total Protein 5.2 g/dL (6.4-8.2)
[2021-12-29] MEDS: METOCLOPRAMIDE HCL 5MG/ml INJ 2ml VIAL IV SCH ×3 (05:47→21:37)
[2021-12-29] MEDS: methylPREDNISolone SOD SUCC 125 MG/2 ML VL IV SCH ×3 (05:47→21:37)
[2021-12-29] MEDS: InsuLIN REG 1unit/0.01ml Soln (100units/ml) SC SCH ×4 (05:48→23:52)
[2021-12-29] MEDS: chlordiazePOXIDE HCL 25 MG CAP PO SCH ×4 (05:50→23:50)
[2021-12-29] MEDS: ceFAZolin 2 GM in D5W 5% 100 ML IV SCH ×2 (05:50→14:52)
[2021-12-29] MEDS: BUDESONIDE (INHALATION) 0.5 MG/2 ML NEB NEB SCH ×2 (06:41→22:18)
[2021-12-29] MEDS: ROCURONIUM 10MG/ML 10ML VIAL IV PRN ×4 (07:50→18:23)
[2021-12-29] MEDS: PANTOPRAZOLE 40 MG/10 ML VIAL INJ IV SCH ×2 (09:06→21:37)
[2021-12-29] MEDS: FUROSEMIDE 40 MG/4 ML VIAL IV SCH (09:06)
[2021-12-29] MEDS: QUEtiapine FUMARATE 25 MG TAB PO SCH ×2 (09:07→21:38)
[2021-12-29] MEDS: SODIUM CHLOR 0.9% PF (SALINE LOCK) 10ML VIAL/SYR IV SCH ×2 (10:00→21:39)
[2021-12-29] MEDS: ACCU-CHEK COMFORT CURVE STRIP VI SCH ×3 (11:16→23:50)
[2021-12-29 12:19] LABS: Basophils # (auto) 0.1 10 ^3/uL (0-0.2); Basophils % (auto) 1.2 % (0.0-2.0); Eosinophils # (auto) 0 10 ^3/uL (0-0.8); Hematocrit 30.8 % (36.0-46.0); Hemoglobin 10.1 g/dL (12.2-16.2); Lymphocytes # (auto) 0.3 10 ^3/uL (0.4-5.4); Lymphocytes % (auto) 2.6 % (10.0-50.0); Mean Corpuscular Hemoglobin 28.3 pg (28.0-32.0); Mean Corpuscular Hgb Conc. 32.6 g/dL (32.0-36.0); Mean Corpuscular Volume 86.9 fL (80.0-100.0); Monocytes # (auto) 0.3 10 ^3/uL (0-1.3); Monocytes % (auto) 2.2 % (0.0-12.0); Nucleated Red Blood Cells % 0.1 %; Red Blood Cells 3.55 10^6/uL (4.0-5.20); Red Cell Distribution Width 15.9 % (11.8-14.3); White Blood Cell 11.7 10^3/uL (4.4-10.8)
[2021-12-29] MEDS: Jevity 1.2 Cal/Fiber 1 Liter GT SCH (17:07)
[2021-12-29] MEDS ORDERED: TPN PER PHARMACY IV NR ×9 (20:00)
[2021-12-29] MEDS: fentaNYL Drip 2500mCg/250mlNS 250 ML IV SCH (20:50)
[2021-12-29] MEDS: ENOXAPARIN SOD 40 MG/0.4 ML SYRINGE SC SCH (21:37)
[2021-12-30] VITALS (106 sets, daily range): BP systolic 85–142; BP diastolic 46–93
[2021-12-30] MEDS: MIDAZOLAM DRIP 50 mg/50mL 50 ML IV SCH ×5 (00:41→20:56)
[2021-12-30] MEDS: PROPOFOL 100 ML IV SCH ×5 (02:11→20:55)
[2021-12-30] MEDS: ALBUTEROL SULF 2.5 MG/0.5ML(0.5%) NEB SOLN NEB SCH ×6 (02:15→21:57)
[2021-12-30] MEDS: IPRATROPIUM BROM 0.5 MG/2.5ML INH SOL NEB SCH ×6 (02:15→21:57)
[2021-12-30] MEDS: ROCURONIUM 10MG/ML 10ML VIAL IV PRN (02:22)
[2021-12-30 04:34] LABS: Basophils # (auto) 0.1 10 ^3/uL (0-0.2); Basophils % (auto) 0.4 % (0.0-2.0); Eosinophils # (auto) 0 10 ^3/uL (0-0.8); Eosinophils % (auto) 0.1 % (0.0-7.0); Hematocrit 32.2 % (36.0-46.0); Hemoglobin 10.5 g/dL (12.2-16.2); Lymphocytes # (auto) 0.1 10 ^3/uL (0.4-5.4); Lymphocytes % (auto) 0.9 % (10.0-50.0); Mean Corpuscular Hemoglobin 27.9 pg (28.0-32.0); Mean Corpuscular Hgb Conc. 32.5 g/dL (32.0-36.0); Mean Corpuscular Volume 85.7 fL (80.0-100.0); Monocytes # (auto) 0.4 10 ^3/uL (0-1.3); Monocytes % (auto) 3.1 % (0.0-12.0); Neutrophils # (auto) 13.5 10 ^3/uL (1.6-8.6); Neutrophils % (auto) 95.5 % (37.0-80.0); Nucleated Red Blood Cells % 0.1 %; Red Blood Cells 3.76 10^6/uL (4.0-5.20); Red Cell Distribution Width 16.1 % (11.8-14.3); White Blood Cell 14.1 10^3/uL (4.4-10.8)
[2021-12-30 04:38] LABS: Potassium 4.3 mmol/L (3.5-5.1)
[2021-12-30 04:46] LABS: Albumin 2.3 g/dL (3.4-5.0); BUN/Creatinine Ratio 95.8; Bilirubin, Total 0.3 mg/dL (0.2-1.0); Calcium 7.6 mg/dL (8.5-10.1); Magnesium 2.4 mg/dL (1.6-2.6); Phosphorus 3.2 mg/dL (2.5-4.90); Total Protein 5.9 g/dL (6.4-8.2)
[2021-12-30] MEDS: methylPREDNISolone SOD SUCC 125 MG/2 ML VL IV SCH ×3 (05:34→22:00)
[2021-12-30] MEDS: METOCLOPRAMIDE HCL 5MG/ml INJ 2ml VIAL IV SCH ×3 (05:34→22:00)
[2021-12-30] MEDS: ACCU-CHEK COMFORT CURVE STRIP VI SCH ×4 (05:35→23:35)
[2021-12-30] MEDS: InsuLIN REG 1unit/0.01ml Soln (100units/ml) SC SCH ×4 (05:37→23:37)
[2021-12-30] MEDS: chlordiazePOXIDE HCL 25 MG CAP PO SCH ×4 (05:54→23:35)
[2021-12-30] MEDS: BUDESONIDE (INHALATION) 0.5 MG/2 ML NEB NEB SCH ×2 (06:05→21:58)
[2021-12-30] MEDS: fentaNYL Drip 2500mCg/250mlNS 250 ML IV SCH ×2 (07:37→18:35)
[2021-12-30] MEDS: FUROSEMIDE 40 MG/4 ML VIAL IV SCH (09:03)
[2021-12-30] MEDS: PANTOPRAZOLE 40 MG/10 ML VIAL INJ IV SCH ×2 (09:14→22:00)
[2021-12-30] MEDS: QUEtiapine FUMARATE 25 MG TAB PO SCH ×2 (09:14→22:01)
[2021-12-30] MEDS: ENOXAPARIN SOD 40 MG/0.4 ML SYRINGE SC SCH (09:14)
[2021-12-30] MEDS: SODIUM CHLOR 0.9% PF (SALINE LOCK) 10ML VIAL/SYR IV SCH ×2 (10:14→22:01)
[2021-12-30] MEDS ORDERED: KETOROLAC TROMETH 30 MG/ML 1ML VIAL IV PRN (17:15)
[2021-12-30] MEDS ORDERED: TPN PER PHARMACY IV NR ×9 (20:00)
[2021-12-30] MEDS: NOREPINEPHRINE 8 MG/250ML KIT 250 ML IV SCH ×2 (20:56→23:30)
[2021-12-31] VITALS (105 sets, daily range): BP systolic 85–146; BP diastolic 46–91
[2021-12-31] MEDS: MIDAZOLAM DRIP 50 mg/50mL 50 ML IV SCH ×5 (00:18→19:50)
[2021-12-31] MEDS: IPRATROPIUM BROM 0.5 MG/2.5ML INH SOL NEB SCH ×6 (02:00→22:04)
[2021-12-31] MEDS: ALBUTEROL SULF 2.5 MG/0.5ML(0.5%) NEB SOLN NEB SCH ×6 (02:00→22:04)
[2021-12-31] MEDS: PROPOFOL 100 ML IV SCH ×5 (02:13→21:22)
[2021-12-31 04:08] LABS: Albumin 2.2 g/dL (3.4-5.0); BUN/Creatinine Ratio 144.4; Calcium 7.9 mg/dL (8.5-10.1); Magnesium 2.5 mg/dL (1.6-2.6); Potassium 4.4 mmol/L (3.5-5.1)
[2021-12-31 04:10] LABS: Bilirubin, Total 0.3 mg/dL (0.2-1.0); Phosphorus 3.5 mg/dL (2.5-4.90); Total Protein 5.4 g/dL (6.4-8.2)
[2021-12-31] MEDS: ROCURONIUM 10MG/ML 10ML VIAL IV PRN ×2 (04:16→22:37)
[2021-12-31] MEDS: methylPREDNISolone SOD SUCC 125 MG/2 ML VL IV SCH ×3 (05:32→22:12)
[2021-12-31] MEDS: ACCU-CHEK COMFORT CURVE STRIP VI SCH ×3 (05:32→17:46)
[2021-12-31] MEDS: METOCLOPRAMIDE HCL 5MG/ml INJ 2ml VIAL IV SCH ×3 (05:32→22:11)
[2021-12-31] MEDS: chlordiazePOXIDE HCL 25 MG CAP PO SCH ×3 (05:32→17:45)
[2021-12-31] MEDS: InsuLIN REG 1unit/0.01ml Soln (100units/ml) SC SCH ×3 (05:34→17:48)
[2021-12-31] MEDS: BUDESONIDE (INHALATION) 0.5 MG/2 ML NEB NEB SCH ×2 (06:33→18:15)
[2021-12-31] MEDS: fentaNYL Drip 2500mCg/250mlNS 250 ML IV SCH ×2 (08:16→21:23)
[2021-12-31] MEDS: FUROSEMIDE 40 MG/4 ML VIAL IV SCH (09:38)
[2021-12-31] MEDS: PANTOPRAZOLE 40 MG/10 ML VIAL INJ IV SCH ×2 (09:38→22:12)
[2021-12-31] MEDS: SODIUM CHLOR 0.9% PF (SALINE LOCK) 10ML VIAL/SYR IV SCH ×2 (09:38→22:00)
[2021-12-31] MEDS: ENOXAPARIN SOD 40 MG/0.4 ML SYRINGE SC SCH (09:39)
[2021-12-31] MEDS: QUEtiapine FUMARATE 25 MG TAB PO SCH ×2 (09:39→22:11)
[2021-12-31] MEDS ORDERED: TPN PER PHARMACY IV NR ×9 (20:00)
[2021-12-31] MEDS: NOREPINEPHRINE 8 MG/250ML KIT 250 ML IV SCH (23:30)
[2022-01-01] VITALS (102 sets, daily range): BP systolic 85–189; BP diastolic 43–120
[2022-01-01] MEDS: MIDAZOLAM DRIP 50 mg/50mL 50 ML IV SCH ×6 (00:09→18:20)
[2022-01-01] MEDS: chlordiazePOXIDE HCL 25 MG CAP PO SCH ×4 (00:09→18:13)
[2022-01-01] MEDS: ACCU-CHEK COMFORT CURVE STRIP VI SCH ×4 (00:09→18:23)
[2022-01-01] MEDS: InsuLIN REG 1unit/0.01ml Soln (100units/ml) SC SCH ×4 (00:12→18:31)
[2022-01-01] MEDS: ROCURONIUM 10MG/ML 10ML VIAL IV PRN ×2 (00:39→04:17)
[2022-01-01] MEDS: ALBUTEROL SULF 2.5 MG/0.5ML(0.5%) NEB SOLN NEB SCH ×6 (02:23→22:04)
[2022-01-01] MEDS: IPRATROPIUM BROM 0.5 MG/2.5ML INH SOL NEB SCH ×6 (02:23→22:04)
[2022-01-01] MEDS: methylPREDNISolone SOD SUCC 125 MG/2 ML VL IV SCH ×3 (05:58→21:49)
[2022-01-01] MEDS: METOCLOPRAMIDE HCL 5MG/ml INJ 2ml VIAL IV SCH ×3 (05:58→21:49)
[2022-01-01] MEDS: BUDESONIDE (INHALATION) 0.5 MG/2 ML NEB NEB SCH ×2 (06:24→22:04)
[2022-01-01] MEDS: PROPOFOL 100 ML IV SCH ×3 (07:35→18:14)
[2022-01-01] MEDS: fentaNYL Drip 2500mCg/250mlNS 250 ML IV SCH ×2 (07:41→21:33)
[2022-01-01 08:11] LABS: Calcium 7.8 mg/dL (8.5-10.1); Magnesium 2.3 mg/dL (1.6-2.6)
[2022-01-01 08:14] LABS: BUN/Creatinine Ratio 115.8; Bilirubin, Total 0.4 mg/dL (0.2-1.0)
[2022-01-01 08:17] LABS: Potassium 4.4 mmol/L (3.5-5.1)
[2022-01-01 08:19] LABS: Total Protein 5.4 g/dL (6.4-8.2)
[2022-01-01] MEDS: PANTOPRAZOLE 40 MG/10 ML VIAL INJ IV SCH ×2 (09:32→21:49)
[2022-01-01] MEDS: QUEtiapine FUMARATE 25 MG TAB PO SCH ×2 (09:32→21:50)
[2022-01-01] MEDS: SODIUM CHLOR 0.9% PF (SALINE LOCK) 10ML VIAL/SYR IV SCH ×2 (09:33→22:00)
[2022-01-01] MEDS: ENOXAPARIN SOD 40 MG/0.4 ML SYRINGE SC SCH (09:34)
[2022-01-01] MEDS: FUROSEMIDE 40 MG/4 ML VIAL IV SCH (09:34)
[2022-01-01] MEDS ORDERED: TPN PER PHARMACY IV NR ×9 (20:00)
[2022-01-01] MEDS: NOREPINEPHRINE 8 MG/250ML KIT 250 ML IV SCH (23:30)
[2022-01-02] VITALS (98 sets, daily range): BP systolic 77–153; BP diastolic 38–99
[2022-01-02] MEDS: chlordiazePOXIDE HCL 25 MG CAP PO SCH ×4 (00:05→17:48)
[2022-01-02] MEDS: ACCU-CHEK COMFORT CURVE STRIP VI SCH ×4 (00:05→17:49)
[2022-01-02] MEDS: InsuLIN REG 1unit/0.01ml Soln (100units/ml) SC SCH ×4 (00:08→17:51)
[2022-01-02] MEDS: IPRATROPIUM BROM 0.5 MG/2.5ML INH SOL NEB SCH ×6 (02:31→22:37)
[2022-01-02] MEDS: ALBUTEROL SULF 2.5 MG/0.5ML(0.5%) NEB SOLN NEB SCH ×6 (02:31→22:37)
[2022-01-02] MEDS: MIDAZOLAM DRIP 50 mg/50mL 50 ML IV SCH ×4 (03:27→19:56)
[2022-01-02 03:45] LABS: Basophils # (auto) 0 10 ^3/uL (0-0.2); Basophils % (auto) 0.3 % (0.0-2.0); Eosinophils # (auto) 0 10 ^3/uL (0-0.8); Hematocrit 29.9 % (36.0-46.0); Hemoglobin 10.2 g/dL (12.2-16.2); Lymphocytes # (auto) 0.2 10 ^3/uL (0.4-5.4); Lymphocytes % (auto) 1.8 % (10.0-50.0); Mean Corpuscular Hemoglobin 29.4 pg (28.0-32.0); Mean Corpuscular Hgb Conc. 34.1 g/dL (32.0-36.0); Mean Corpuscular Volume 86.2 fL (80.0-100.0); Monocytes # (auto) 0.4 10 ^3/uL (0-1.3); Neutrophils % (auto) 93.9 % (37.0-80.0); Nucleated Red Blood Cells % 0.1 %; Red Blood Cells 3.48 10^6/uL (4.0-5.20); Red Cell Distribution Width 16.3 % (11.8-14.3); White Blood Cell 10.7 10^3/uL (4.4-10.8)
[2022-01-02 03:59] LABS: Albumin 1.8 g/dL (3.4-5.0); Anion Gap 6 (5-15); Blood Urea Nitrogen 22 mg/dL (7-18); Calcium 7.2 mg/dL (8.5-10.1); Carbon Dioxide 32 mmol/L (21-32); Chloride 97 mmol/L (98-107); Glucose 203 mg/dL (74-106); Magnesium 2.1 mg/dL (1.6-2.6); Potassium 3.9 mmol/L (3.5-5.1); Sodium 135 mmol/L (136-145)
[2022-01-02 04:02] LABS: Alkaline Phosphatase 103 U/L (45-117); Aspartate Aminotransferase 21 U/L (15-37); Bilirubin, Total 0.6 mg/dL (0.2-1.0); GFR African American 705 mL/min; GFR Non-African American 583 mL/min; Total Protein 5.2 g/dL (6.4-8.2)
[2022-01-02 04:09] LABS: Alanine Aminotransferase 67 U/L (13-56); BUN/Creatinine Ratio 146.7
[2022-01-02] MEDS: PROPOFOL 100 ML IV SCH ×4 (05:11→19:55)
[2022-01-02] MEDS: BUDESONIDE (INHALATION) 0.5 MG/2 ML NEB NEB SCH ×2 (06:12→22:37)
[2022-01-02] MEDS: METOCLOPRAMIDE HCL 5MG/ml INJ 2ml VIAL IV SCH ×3 (06:24→21:43)
[2022-01-02] MEDS: methylPREDNISolone SOD SUCC 125 MG/2 ML VL IV SCH ×3 (06:24→21:43)
[2022-01-02] MEDS: PANTOPRAZOLE 40 MG/10 ML VIAL INJ IV SCH ×2 (09:45→21:43)
[2022-01-02] MEDS: QUEtiapine FUMARATE 25 MG TAB PO SCH ×2 (09:45→21:43)
[2022-01-02] MEDS: ENOXAPARIN SOD 40 MG/0.4 ML SYRINGE SC SCH (09:45)
[2022-01-02] MEDS: FUROSEMIDE 40 MG/4 ML VIAL IV SCH (09:46)
[2022-01-02] MEDS: SODIUM CHLOR 0.9% PF (SALINE LOCK) 10ML VIAL/SYR IV SCH ×2 (10:09→22:00)
[2022-01-02] MEDS: fentaNYL Drip 2500mCg/250mlNS 250 ML IV SCH (11:24)
[2022-01-02] MEDS ORDERED: TPN PER PHARMACY IV NR ×10 (20:00)
[2022-01-03] VITALS (104 sets, daily range): BP systolic 76–138; BP diastolic 43–92
[2022-01-03] MEDS: InsuLIN REG 1unit/0.01ml Soln (100units/ml) SC SCH ×5 (00:31→23:58)
[2022-01-03] MEDS: chlordiazePOXIDE HCL 25 MG CAP PO SCH ×3 (00:32→11:43)
[2022-01-03] MEDS: ALBUTEROL SULF 2.5 MG/0.5ML(0.5%) NEB SOLN NEB SCH ×6 (02:08→22:08)
[2022-01-03] MEDS: IPRATROPIUM BROM 0.5 MG/2.5ML INH SOL NEB SCH ×6 (02:08→22:08)
[2022-01-03] MEDS: ACETAMINOPHEN 325 MG TAB PO PRN (03:15)
[2022-01-03] MEDS: fentaNYL Drip 2500mCg/250mlNS 250 ML IV SCH ×2 (03:35→12:05)
[2022-01-03] MEDS: PROPOFOL 100 ML IV SCH ×4 (03:36→20:31)
[2022-01-03] MEDS: MIDAZOLAM DRIP 50 mg/50mL 50 ML IV SCH ×6 (03:36→22:01)
[2022-01-03] MEDS: ACCU-CHEK COMFORT CURVE STRIP VI SCH ×5 (06:16→23:59)
[2022-01-03] MEDS: methylPREDNISolone SOD SUCC 125 MG/2 ML VL IV SCH ×3 (06:16→21:57)
[2022-01-03] MEDS: METOCLOPRAMIDE HCL 5MG/ml INJ 2ml VIAL IV SCH ×3 (06:16→21:56)
[2022-01-03] MEDS: BUDESONIDE (INHALATION) 0.5 MG/2 ML NEB NEB SCH ×2 (06:25→22:08)
[2022-01-03 07:14] LABS: Basophils # (auto) 0 10 ^3/uL (0-0.2); Basophils % (auto) 0.4 % (0.0-2.0); Eosinophils # (auto) 0.1 10 ^3/uL (0-0.8); Eosinophils % (auto) 0.9 % (0.0-7.0); Hematocrit 34.2 % (36.0-46.0); Hemoglobin 11.4 g/dL (12.2-16.2); Lymphocytes # (auto) 0.4 10 ^3/uL (0.4-5.4); Mean Corpuscular Hemoglobin 28.4 pg (28.0-32.0); Mean Corpuscular Hgb Conc. 33.3 g/dL (32.0-36.0); Mean Corpuscular Volume 85.3 fL (80.0-100.0); Monocytes # (auto) 0 10 ^3/uL (0-1.3); Monocytes % (auto) 0.3 % (0.0-12.0); Neutrophils # (auto) 9.3 10 ^3/uL (1.6-8.6); Neutrophils % (auto) 94.4 % (37.0-80.0); Nucleated Red Blood Cells % 0.1 %; Red Blood Cells 4.01 10^6/uL (4.0-5.20); Red Cell Distribution Width 16.4 % (11.8-14.3); White Blood Cell 9.8 10^3/uL (4.4-10.8)
[2022-01-03 07:30] LABS: Albumin 1.6 g/dL (3.4-5.0); Calcium 7.2 mg/dL (8.5-10.1); Magnesium 2.2 mg/dL (1.6-2.6); Potassium 4.3 mmol/L (3.5-5.1)
[2022-01-03 07:34] LABS: Bilirubin, Total 1.8 mg/dL (0.2-1.0); Phosphorus 3.4 mg/dL (2.5-4.90); Total Protein 5.4 g/dL (6.4-8.2)
[2022-01-03 07:43] LABS: BUN/Creatinine Ratio 135.3
[2022-01-03] MEDS: FUROSEMIDE 40 MG/4 ML VIAL IV SCH (09:49)
[2022-01-03] MEDS: ENOXAPARIN SOD 40 MG/0.4 ML SYRINGE SC SCH (09:49)
[2022-01-03] MEDS: PANTOPRAZOLE 40 MG/10 ML VIAL INJ IV SCH ×2 (09:49→21:56)
[2022-01-03] MEDS: QUEtiapine FUMARATE 25 MG TAB PO SCH ×2 (09:53→21:56)
[2022-01-03] MEDS: SODIUM CHLOR 0.9% PF (SALINE LOCK) 10ML VIAL/SYR IV SCH ×2 (11:14→21:57)
[2022-01-03] MEDS: NOREPINEPHRINE 8 MG/250ML KIT 250 ML IV SCH ×2 (11:15→23:30)
[2022-01-03] MEDS ORDERED: TPN PER PHARMACY IV NR ×10 (20:00)
[2022-01-04] VITALS (108 sets, daily range): BP systolic 87–149; BP diastolic 46–96
[2022-01-04] MEDS: fentaNYL Drip 2500mCg/250mlNS 250 ML IV SCH ×2 (00:58→13:49)
[2022-01-04] MEDS: MIDAZOLAM DRIP 50 mg/50mL 50 ML IV SCH ×7 (01:24→23:19)
[2022-01-04] MEDS: IPRATROPIUM BROM 0.5 MG/2.5ML INH SOL NEB SCH ×6 (02:09→22:08)
[2022-01-04] MEDS: ALBUTEROL SULF 2.5 MG/0.5ML(0.5%) NEB SOLN NEB SCH ×6 (02:09→22:08)
[2022-01-04] MEDS: PROPOFOL 100 ML IV SCH ×4 (03:10→22:17)
[2022-01-04] MEDS: Jevity 1.2 Cal/Fiber 1 Liter GT SCH (04:16)
[2022-01-04 04:28] LABS: Albumin 1.8 g/dL (3.4-5.0); BUN/Creatinine Ratio 104.8; Calcium 8.4 mg/dL (8.5-10.1); Magnesium 2.3 mg/dL (1.6-2.6); Potassium 4.2 mmol/L (3.5-5.1)
[2022-01-04 04:31] LABS: Bilirubin, Total 0.5 mg/dL (0.2-1.0); Phosphorus 3.4 mg/dL (2.5-4.90); Total Protein 6.1 g/dL (6.4-8.2)
[2022-01-04] MEDS: BUDESONIDE (INHALATION) 0.5 MG/2 ML NEB NEB SCH ×2 (05:25→22:08)
[2022-01-04] MEDS: ACCU-CHEK COMFORT CURVE STRIP VI SCH ×4 (06:26→23:20)
[2022-01-04] MEDS: METOCLOPRAMIDE HCL 5MG/ml INJ 2ml VIAL IV SCH ×3 (06:26→22:26)
[2022-01-04] MEDS: methylPREDNISolone SOD SUCC 125 MG/2 ML VL IV SCH ×2 (06:26→22:26)
[2022-01-04] MEDS: InsuLIN REG 1unit/0.01ml Soln (100units/ml) SC SCH ×4 (06:27→23:20)
[2022-01-04] MEDS: ROCURONIUM 10MG/ML 10ML VIAL IV PRN ×2 (08:54→20:14)
[2022-01-04] MEDS: FUROSEMIDE 40 MG/4 ML VIAL IV SCH (09:31)
[2022-01-04] MEDS: ENOXAPARIN SOD 40 MG/0.4 ML SYRINGE SC SCH (09:31)
[2022-01-04] MEDS: PANTOPRAZOLE 40 MG/10 ML VIAL INJ IV SCH ×2 (09:31→22:26)
[2022-01-04] MEDS: QUEtiapine FUMARATE 25 MG TAB PO SCH ×2 (09:32→22:27)
[2022-01-04] MEDS: SODIUM CHLOR 0.9% PF (SALINE LOCK) 10ML VIAL/SYR IV SCH ×2 (09:32→22:27)
[2022-01-04] MEDS ORDERED: TPN PER PHARMACY IV NR ×11 (20:00)
[2022-01-04] MEDS: ACETAMINOPHEN 325 MG TAB PO PRN (23:10)
[2022-01-04] MEDS: NOREPINEPHRINE 8 MG/250ML KIT 250 ML IV SCH (23:30)
[2022-01-05] VITALS (93 sets, daily range): BP systolic 87–128; BP diastolic 50–88
[2022-01-05] MEDS: ALBUTEROL SULF 2.5 MG/0.5ML(0.5%) NEB SOLN NEB SCH ×6 (02:07→22:09)
[2022-01-05] MEDS: IPRATROPIUM BROM 0.5 MG/2.5ML INH SOL NEB SCH ×6 (02:07→22:09)
[2022-01-05] MEDS: fentaNYL Drip 2500mCg/250mlNS 250 ML IV SCH ×2 (02:50→14:37)
[2022-01-05] MEDS: MIDAZOLAM DRIP 50 mg/50mL 50 ML IV SCH ×5 (03:08→21:49)
[2022-01-05 04:33] LABS: Chloride 103 mmol/L (98-107); Potassium 4.1 mmol/L (3.5-5.1); Sodium 138 mmol/L (136-145)
[2022-01-05 04:39] LABS: Alanine Aminotransferase 138 U/L (13-56); Albumin 1.4 g/dL (3.4-5.0); Alkaline Phosphatase 211 U/L (45-117); Anion Gap 4 (5-15); Aspartate Aminotransferase 54 U/L (15-37); BUN/Creatinine Ratio 153.3; Bilirubin, Total 0.9 mg/dL (0.2-1.0); Blood Urea Nitrogen 23 mg/dL (7-18); Calcium 7.7 mg/dL (8.5-10.1); Carbon Dioxide 31 mmol/L (21-32); GFR African American 705 mL/min; GFR Non-African American 583 mL/min; Glucose 190 mg/dL (74-106); Magnesium 2.2 mg/dL (1.6-2.6); Phosphorus 3.6 mg/dL (2.5-4.90); Total Protein 5.2 g/dL (6.4-8.2)
[2022-01-05] MEDS: BUDESONIDE (INHALATION) 0.5 MG/2 ML NEB NEB SCH ×2 (05:54→22:09)
[2022-01-05] MEDS: InsuLIN REG 1unit/0.01ml Soln (100units/ml) SC SCH ×3 (06:00→17:31)
[2022-01-05] MEDS: ROCURONIUM 10MG/ML 10ML VIAL IV PRN (06:02)
[2022-01-05] MEDS: ACCU-CHEK COMFORT CURVE STRIP VI SCH ×3 (06:10→17:25)
[2022-01-05] MEDS: METOCLOPRAMIDE HCL 5MG/ml INJ 2ml VIAL IV SCH ×3 (06:10→21:56)
[2022-01-05] MEDS: PROPOFOL 100 ML IV SCH ×2 (08:39→13:23)
[2022-01-05] MEDS: PANTOPRAZOLE 40 MG/10 ML VIAL INJ IV SCH ×2 (10:37→21:50)
[2022-01-05] MEDS: methylPREDNISolone SOD SUCC 125 MG/2 ML VL IV SCH ×2 (10:37→21:54)
[2022-01-05] MEDS: SODIUM CHLOR 0.9% PF (SALINE LOCK) 10ML VIAL/SYR IV SCH ×2 (10:38→21:51)
[2022-01-05] MEDS: FUROSEMIDE 40 MG/4 ML VIAL IV SCH (10:38)
[2022-01-05] MEDS: QUEtiapine FUMARATE 25 MG TAB PO SCH ×2 (10:38→21:57)
[2022-01-05] MEDS: ENOXAPARIN SOD 40 MG/0.4 ML SYRINGE SC SCH (10:38)
[2022-01-05] MEDS ORDERED: TPN PER PHARMACY IV NR ×8 (20:00)
[2022-01-05] MEDS: NOREPINEPHRINE 8 MG/250ML KIT 250 ML IV SCH (23:30)
[2022-01-06] VITALS (103 sets, daily range): BP systolic 82–161; BP diastolic 47–109
[2022-01-06] MEDS: PROPOFOL 100 ML IV SCH ×4 (00:02→13:19)
[2022-01-06] MEDS: ACCU-CHEK COMFORT CURVE STRIP VI SCH ×4 (00:10→17:47)
[2022-01-06] MEDS: MIDAZOLAM DRIP 50 mg/50mL 50 ML IV SCH ×5 (01:57→21:35)
[2022-01-06] MEDS: fentaNYL Drip 2500mCg/250mlNS 250 ML IV SCH ×2 (01:59→13:57)
[2022-01-06] MEDS: IPRATROPIUM BROM 0.5 MG/2.5ML INH SOL NEB SCH ×6 (02:12→21:52)
[2022-01-06] MEDS: ALBUTEROL SULF 2.5 MG/0.5ML(0.5%) NEB SOLN NEB SCH ×6 (02:12→21:52)
[2022-01-06 04:45] LABS: Hematocrit 31.6 % (36.0-46.0); Hemoglobin 10.2 g/dL (12.2-16.2); Mean Corpuscular Hemoglobin 27.7 pg (28.0-32.0); Mean Corpuscular Hgb Conc. 32.4 g/dL (32.0-36.0); Mean Corpuscular Volume 85.5 fL (80.0-100.0); Red Cell Distribution Width 16.3 % (11.8-14.3); White Blood Cell 18.8 10^3/uL (4.4-10.8)
[2022-01-06 04:51] LABS: Basophils % (manual) 0 (0.0-2.0); Blast Cells 0; Metamyelocytes % 0; Promyelocytes % 0; Reactive Lymphocytes 0
[2022-01-06 04:52] LABS: Calcium 8.2 mg/dL (8.5-10.1); Magnesium 2.1 mg/dL (1.6-2.6); Potassium 3.8 mmol/L (3.5-5.1)
[2022-01-06 04:59] LABS: Albumin 1.4 g/dL (3.4-5.0); BUN/Creatinine Ratio 122.2; Bilirubin, Total 0.7 mg/dL (0.2-1.0); Phosphorus 3.4 mg/dL (2.5-4.90); Total Protein 5.8 g/dL (6.4-8.2)
[2022-01-06 05:37] LABS: Band Neutrophils % (manual) 32; Eosinophils % (manual) 1 (0-7); Lymphocytes % (manual) 2 (10.0-50.0); Monocytes % (manual) 6 (0-12); Myelocytes % 3
[2022-01-06] MEDS: InsuLIN REG 1unit/0.01ml Soln (100units/ml) SC SCH ×4 (06:00→17:46)
[2022-01-06] MEDS: METOCLOPRAMIDE HCL 5MG/ml INJ 2ml VIAL IV SCH ×3 (06:08→21:36)
[2022-01-06] MEDS: BUDESONIDE (INHALATION) 0.5 MG/2 ML NEB NEB SCH ×2 (06:15→18:00)
[2022-01-06] MEDS: ACETAMINOPHEN 325 MG TAB PO PRN ×3 (06:54→19:59)
[2022-01-06] MEDS: ENOXAPARIN SOD 40 MG/0.4 ML SYRINGE SC SCH (09:29)
[2022-01-06] MEDS: methylPREDNISolone SOD SUCC 125 MG/2 ML VL IV SCH ×2 (09:29→21:36)
[2022-01-06] MEDS: PANTOPRAZOLE 40 MG/10 ML VIAL INJ IV SCH ×2 (09:29→21:36)
[2022-01-06] MEDS: FUROSEMIDE 40 MG/4 ML VIAL IV SCH (09:29)
[2022-01-06] MEDS: SODIUM CHLOR 0.9% PF (SALINE LOCK) 10ML VIAL/SYR IV SCH ×2 (09:30→22:00)
[2022-01-06] MEDS: QUEtiapine FUMARATE 25 MG TAB PO SCH ×2 (09:30→21:36)
[2022-01-06] MEDS ORDERED: TPN PER PHARMACY IV NR ×8 (20:00)
[2022-01-06] MEDS: NOREPINEPHRINE 8 MG/250ML KIT 250 ML IV SCH (23:30)
[2022-01-07] VITALS (105 sets, daily range): BP systolic 86–150; BP diastolic 44–102
[2022-01-07] MEDS: ACCU-CHEK COMFORT CURVE STRIP VI SCH ×5 (00:15→23:30)
[2022-01-07] MEDS: PROPOFOL 100 ML IV SCH ×4 (00:16→14:11)
[2022-01-07] MEDS: MIDAZOLAM DRIP 50 mg/50mL 50 ML IV SCH ×4 (00:47→14:12)
[2022-01-07] MEDS: ALBUTEROL SULF 2.5 MG/0.5ML(0.5%) NEB SOLN NEB SCH ×2 (01:54→22:04)
[2022-01-07] MEDS: IPRATROPIUM BROM 0.5 MG/2.5ML INH SOL NEB SCH ×2 (01:54→22:04)
[2022-01-07] MEDS: fentaNYL Drip 2500mCg/250mlNS 250 ML IV SCH ×2 (02:49→15:01)
[2022-01-07] MEDS: ACETAMINOPHEN 325 MG TAB PO PRN ×3 (02:52→22:48)
[2022-01-07 04:08] LABS: Albumin 1.3 g/dL (3.4-5.0); Calcium 8.3 mg/dL (8.5-10.1); Magnesium 2.5 mg/dL (1.6-2.6); Potassium 3.5 mmol/L (3.5-5.1)
[2022-01-07 04:13] LABS: BUN/Creatinine Ratio 89.5; Bilirubin, Total 1.6 mg/dL (0.2-1.0); Phosphorus 3.4 mg/dL (2.5-4.90)
[2022-01-07] MEDS: METOCLOPRAMIDE HCL 5MG/ml INJ 2ml VIAL IV SCH ×3 (05:32→22:29)
[2022-01-07] MEDS: Jevity 1.2 Cal/Fiber 1 Liter GT SCH (05:33)
[2022-01-07] MEDS: InsuLIN REG 1unit/0.01ml Soln (100units/ml) SC SCH ×5 (05:33→23:30)
[2022-01-07] MEDS: BUDESONIDE (INHALATION) 0.5 MG/2 ML NEB NEB SCH ×2 (05:38→22:04)
[2022-01-07] MEDS ORDERED: POTASSIUM CHL 20MEQ/100ML 100 ML IV ONE (09:30)
[2022-01-07] MEDS: PANTOPRAZOLE 40 MG/10 ML VIAL INJ IV SCH ×2 (09:32→22:29)
[2022-01-07] MEDS: methylPREDNISolone SOD SUCC 125 MG/2 ML VL IV SCH ×2 (09:34→22:29)
[2022-01-07] MEDS: ENOXAPARIN SOD 40 MG/0.4 ML SYRINGE SC SCH (09:35)
[2022-01-07] MEDS: SODIUM CHLOR 0.9% PF (SALINE LOCK) 10ML VIAL/SYR IV SCH ×2 (09:35→22:00)
[2022-01-07] MEDS: FUROSEMIDE 40 MG/4 ML VIAL IV SCH (09:35)
[2022-01-07] MEDS: QUEtiapine FUMARATE 25 MG TAB PO SCH ×2 (09:35→22:29)
[2022-01-07] MEDS ORDERED: IPRATROPIUM BROM 0.5 MG/2.5ML INH SOL ONE (18:41)
[2022-01-07] MEDS ORDERED: ALBUTEROL SULF 2.5 MG/0.5ML(0.5%) NEB SOLN ONE (18:41)
[2022-01-07] MEDS ORDERED: TPN PER PHARMACY IV NR ×8 (20:00)
[2022-01-08] VITALS (105 sets, daily range): BP systolic 95–142; BP diastolic 49–98
[2022-01-08] MEDS: IPRATROPIUM BROM 0.5 MG/2.5ML INH SOL NEB SCH ×6 (02:17→22:03)
[2022-01-08] MEDS: ALBUTEROL SULF 2.5 MG/0.5ML(0.5%) NEB SOLN NEB SCH ×6 (02:17→22:03)
[2022-01-08] MEDS: InsuLIN REG 1unit/0.01ml Soln (100units/ml) SC SCH ×3 (05:48→18:18)
[2022-01-08] MEDS: ACCU-CHEK COMFORT CURVE STRIP VI SCH ×3 (05:49→18:23)
[2022-01-08] MEDS: METOCLOPRAMIDE HCL 5MG/ml INJ 2ml VIAL IV SCH ×3 (06:35→22:16)
[2022-01-08] MEDS: ACETAMINOPHEN 325 MG TAB PO PRN ×2 (06:41→18:13)
[2022-01-08] MEDS: BUDESONIDE (INHALATION) 0.5 MG/2 ML NEB NEB SCH ×2 (07:13→22:03)
[2022-01-08 07:57] LABS: Calcium 8.4 mg/dL (8.5-10.1); Magnesium 2.3 mg/dL (1.6-2.6); Potassium 4.1 mmol/L (3.5-5.1)
[2022-01-08 08:01] LABS: Bilirubin, Total 1.2 mg/dL (0.2-1.0); Phosphorus 3.1 mg/dL (2.5-4.90); Total Protein 5.6 g/dL (6.4-8.2)
[2022-01-08] MEDS: PANTOPRAZOLE 40 MG/10 ML VIAL INJ IV SCH ×2 (09:39→22:16)
[2022-01-08] MEDS: methylPREDNISolone SOD SUCC 125 MG/2 ML VL IV SCH ×2 (09:39→22:16)
[2022-01-08] MEDS: SODIUM CHLOR 0.9% PF (SALINE LOCK) 10ML VIAL/SYR IV SCH ×2 (09:41→22:16)
[2022-01-08] MEDS: FUROSEMIDE 40 MG/4 ML VIAL IV SCH (09:41)
[2022-01-08] MEDS: ENOXAPARIN SOD 40 MG/0.4 ML SYRINGE SC SCH (09:41)
[2022-01-08] MEDS: QUEtiapine FUMARATE 25 MG TAB PO SCH ×2 (09:41→22:16)
[2022-01-08] MEDS: POTASSIUM EFFERVESENT TAB 25 MEQ GT SCH (09:55)
[2022-01-08] MEDS ORDERED: chlordiazePOXIDE HCL 25 MG CAP PO PRN (12:00)
[2022-01-08] MEDS: chlordiazePOXIDE HCL 25 MG CAP PO SCH ×2 (12:10→18:18)
[2022-01-08] MEDS: PROPOFOL 100 ML IV SCH ×2 (13:49→20:47)
[2022-01-08] MEDS: MIDAZOLAM DRIP 50 mg/50mL 50 ML IV SCH ×2 (13:51→19:25)
[2022-01-08] MEDS: fentaNYL Drip 2500mCg/250mlNS 250 ML IV SCH (19:25)
[2022-01-08] MEDS ORDERED: TPN PER PHARMACY IV NR ×9 (20:00)
[2022-01-09] VITALS (106 sets, daily range): BP systolic 65–139; BP diastolic 33–113
[2022-01-09] MEDS: chlordiazePOXIDE HCL 25 MG CAP PO SCH ×4 (00:22→17:45)
[2022-01-09] MEDS: ACCU-CHEK COMFORT CURVE STRIP VI SCH ×4 (00:23→17:48)
[2022-01-09] MEDS: InsuLIN REG 1unit/0.01ml Soln (100units/ml) SC SCH ×4 (00:31→18:00)
[2022-01-09] MEDS: MIDAZOLAM DRIP 50 mg/50mL 50 ML IV SCH ×4 (00:50→18:46)
[2022-01-09] MEDS: IPRATROPIUM BROM 0.5 MG/2.5ML INH SOL NEB SCH ×6 (02:04→22:21)
[2022-01-09] MEDS: ALBUTEROL SULF 2.5 MG/0.5ML(0.5%) NEB SOLN NEB SCH ×6 (02:04→22:20)
[2022-01-09] MEDS: PROPOFOL 100 ML IV SCH ×4 (02:50→20:27)
[2022-01-09 04:43] LABS: Calcium 8.5 mg/dL (8.5-10.1); Potassium 3.3 mmol/L (3.5-5.1)
[2022-01-09 04:48] LABS: BUN/Creatinine Ratio 131.8; Bilirubin, Total 1.4 mg/dL (0.2-1.0); Magnesium 2.2 mg/dL (1.6-2.6); Total Protein 5.3 g/dL (6.4-8.2)
[2022-01-09 04:55] LABS: Albumin 0.9 g/dL (3.4-5.0)
[2022-01-09] MEDS: BUDESONIDE (INHALATION) 0.5 MG/2 ML NEB NEB SCH ×2 (05:55→18:26)
[2022-01-09] MEDS: ALBUMIN 25% 50 ML IV SCH ×3 (06:03→22:26)
[2022-01-09] MEDS: METOCLOPRAMIDE HCL 5MG/ml INJ 2ml VIAL IV SCH ×3 (06:04→22:26)
[2022-01-09] MEDS: ACETAMINOPHEN 325 MG TAB PO PRN (06:18)
[2022-01-09] MEDS: POTASSIUM EFFERVESENT TAB 25 MEQ GT SCH (07:34)
[2022-01-09] MEDS ORDERED: POTASSIUM CHL 20MEQ/100ML 100 ML IV ONE (09:30)
[2022-01-09] MEDS: ENOXAPARIN SOD 40 MG/0.4 ML SYRINGE SC SCH (09:48)
[2022-01-09] MEDS: methylPREDNISolone SOD SUCC 125 MG/2 ML VL IV SCH ×2 (09:48→22:26)
[2022-01-09] MEDS: QUEtiapine FUMARATE 25 MG TAB PO SCH ×2 (09:48→22:27)
[2022-01-09] MEDS: SODIUM CHLOR 0.9% PF (SALINE LOCK) 10ML VIAL/SYR IV SCH ×2 (09:49→22:26)
[2022-01-09] MEDS: PANTOPRAZOLE 40 MG/10 ML VIAL INJ IV SCH ×2 (09:49→22:26)
[2022-01-09] MEDS: FUROSEMIDE 40 MG/4 ML VIAL IV SCH (09:49)
[2022-01-09] MEDS: fentaNYL Drip 2500mCg/250mlNS 250 ML IV SCH (11:10)
[2022-01-09] MEDS ORDERED: GASTROGRAFIN 30 ML SOL ONE (12:47)
[2022-01-09] MEDS ORDERED: TPN PER PHARMACY IV NR ×8 (20:00)
[2022-01-09] MEDS ORDERED: PHENYLEPHRINE IV 250 ML IV ONE (22:55)
[2022-01-09] MEDS ORDERED: PHENYLEPHRINE HCL 10 MG/ML VL ONE (22:55)
[2022-01-09] MEDS ORDERED: PHENYLEPHRINE INJ 80 MG in SODIUM CHL 0.9% 242 ML IV SCH (23:00)
[2022-01-09] MEDS ORDERED: ALBUTEROL SULF 2.5 MG/0.5ML(0.5%) NEB SOLN NEB ONE (23:45)
[2022-01-09] MEDS ORDERED: NOREPINEPHRINE 8 MG/250ML KIT 250 ML IV ONE (23:46)
[2022-01-09 23:59] LABS: Hematocrit 33.8 % (36.0-46.0); Hemoglobin 10.5 g/dL (12.2-16.2); Mean Corpuscular Hemoglobin 27.6 pg (28.0-32.0); Mean Corpuscular Hgb Conc. 31.2 g/dL (32.0-36.0); Mean Corpuscular Volume 88.5 fL (80.0-100.0); Red Blood Cells 3.82 10^6/uL (4.0-5.20); Red Cell Distribution Width 16.8 % (11.8-14.3); White Blood Cell 6.8 10^3/uL (4.4-10.8)
[2022-01-10] VITALS (13 sets, daily range): BP systolic 81–148; BP diastolic 38–88
[2022-01-10] MEDS: ACCU-CHEK COMFORT CURVE STRIP VI SCH
[2022-01-10] MEDS: InsuLIN REG 1unit/0.01ml Soln (100units/ml) SC SCH
[2022-01-10] MEDS: chlordiazePOXIDE HCL 25 MG CAP PO SCH
[2022-01-10] MEDS ORDERED: NOREPINEPHRINE 8 MG/250ML KIT 250 ML IV SCH
[2022-01-10] MEDS: fentaNYL Drip 2500mCg/250mlNS 250 ML IV SCH (00:11)
[2022-01-10 00:54] LABS: Band Neutrophils % (manual) 56; Basophils % (manual) 0 (0.0-2.0); Blast Cells 0; Eosinophils % (manual) 0 (0-7); Lymphocytes % (manual) 7 (10.0-50.0); Metamyelocytes % 2; Monocytes % (manual) 2 (0-12); Myelocytes % 2; Promyelocytes % 0; Reactive Lymphocytes 0
[2022-01-10] MEDS ORDERED: VASOPRESSIN 50 UNITS in D5W 5% 247.5 ML IV SCH (01:45)
[2022-01-10] MEDS ORDERED: SODIUM CHLORIDE 0.9% 1,000 ML IV ONE (01:45)
[2022-01-10] MEDS: ALBUTEROL SULF 2.5 MG/0.5ML(0.5%) NEB SOLN NEB SCH (02:00)
[2022-01-10] MEDS: ALBUTEROL SULF 2.5 MG/0.5ML(0.5%) NEB SOLN NEB PRN ×2 (02:07→04:15)
[2022-01-10] MEDS: IPRATROPIUM BROM 0.5 MG/2.5ML INH SOL NEB SCH (02:07)
[2022-01-10 02:31] LABS: Hemoglobin 9.8 g/dL (12.2-16.2)
[2022-01-10 02:34] LABS: Hematocrit 31.1 % (36.0-46.0); Mean Corpuscular Hemoglobin 27.8 pg (28.0-32.0); Mean Corpuscular Hgb Conc. 31.5 g/dL (32.0-36.0); Mean Corpuscular Volume 88.4 fL (80.0-100.0); Red Blood Cells 3.52 10^6/uL (4.0-5.20); Red Cell Distribution Width 16.9 % (11.8-14.3)
[2022-01-10 02:53] LABS: INR 1.08 (0.9-1.15); Partial Thromboplastin Time 41.6 sec (24.6-33.4)
[2022-01-10 03:43] LABS: Band Neutrophils % (manual) 53; Basophils % (manual) 0 (0.0-2.0); Blast Cells 0; Eosinophils % (manual) 0 (0-7); Promyelocytes % 0; Reactive Lymphocytes 0
[2022-01-10 03:44] LABS: Lymphocytes % (manual) 7 (10.0-50.0); Metamyelocytes % 2; Myelocytes % 1
[2022-01-10 03:45] LABS: Monocytes % (manual) 4 (0-12)
[2022-01-10 03:51] LABS: Albumin 1.2 g/dL (3.4-5.0); Calcium 7.4 mg/dL (8.5-10.1); Potassium 5.2 mmol/L (3.5-5.1)
[2022-01-10 04:03] LABS: Bilirubin, Total 1.8 mg/dL (0.2-1.0); Total Protein 4.6 g/dL (6.4-8.2)
[2022-01-10 05:00] LABS: Phosphorus 8.9 mg/dL (2.5-4.90)
[2022-01-10 06:41] LABS: Hematocrit 33.6 % (36.0-46.0); Hemoglobin 10.6 g/dL (12.2-16.2); Red Blood Cells 3.79 10^6/uL (4.0-5.20); White Blood Cell 9.5 10^3/uL (4.4-10.8)
[2022-01-10 06:42] LABS: Mean Corpuscular Hemoglobin 27.9 pg (28.0-32.0); Mean Corpuscular Hgb Conc. 31.5 g/dL (32.0-36.0); Mean Corpuscular Volume 88.7 fL (80.0-100.0); Red Cell Distribution Width 17.4 % (11.8-14.3)
[2022-01-10 06:48] LABS: Band Neutrophils % (manual) 56; Basophils % (manual) 0 (0.0-2.0); Blast Cells 0; Eosinophils % (manual) 0 (0-7); Lymphocytes % (manual) 14 (10.0-50.0); Metamyelocytes % 2; Monocytes % (manual) 0 (0-12); Myelocytes % 1; Promyelocytes % 0; Reactive Lymphocytes 0
[2022-01-10] MEDS ORDERED: EPINEPHrine HCL 1 MG/10 ML SYRG IV ONE (13:02)
== END 2022-01-10 13:03 | DRG 5 ==
LOC: EDBD 15:14 → EDUNIT# 15:14 → ER 15:14 → TELE 20:38 → ICU WEST 23:57
PROVIDERS: ADMIT Hospitalist; ATTEND Internal Medicine
PROC: 06HY33Z Insertion of Infusion Device into Lower Vein, Percutaneous Approach (ICD-10-PCS; 2021-12-07)
PROC: B54CZZA Ultrasonography of Left Lower Extremity Veins, Guidance (ICD-10-PCS; 2021-12-07)
PROC: 5A1955Z Respiratory Ventilation, Greater than 96 Consecutive Hours (ICD-10-PCS; principal; 2021-12-08)
PROC: 0BH17EZ Insertion of Endotracheal Airway into Trachea, Via Natural or Artificial Opening (ICD-10-PCS; 2021-12-08)
PROC: 0D9670Z Drainage of Stomach with Drainage Device, Via Natural or Artificial Opening (ICD-10-PCS; 2021-12-17)
PROC: 0B110F4 Bypass Trachea to Cutaneous with Tracheostomy Device, Open Approach (ICD-10-PCS; 2021-12-23)
PROC: 0DH63UZ Insertion of Feeding Device into Stomach, Percutaneous Approach (ICD-10-PCS; 2021-12-25)
PROC: 05HY33Z Insertion of Infusion Device into Upper Vein, Percutaneous Approach (ICD-10-PCS; 2022-01-10)
DX: J96.01 Acute respiratory failure with hypoxia (principal); G93.41 Metabolic encephalopathy; J45.902 Unspecified asthma with status asthmaticus; E88.09 Other disorders of plasma-protein metabolism, not elsewhere classified; Z99.11 Dependence on respirator [ventilator] status; E86.0 Dehydration; I46.9 Cardiac arrest, cause unspecified; K25.9 Gastric ulcer, unspecified as acute or chronic, without hemorrhage or perforation; J98.11 Atelectasis; F10.10 Alcohol abuse, uncomplicated; Y90.9 Presence of alcohol in blood, level not specified; E87.5 Hyperkalemia; E87.6 Hypokalemia; K29.70 Gastritis, unspecified, without bleeding; K31.84 Gastroparesis; F15.10 Other stimulant abuse, uncomplicated; Z20.822 Contact with and (suspected) exposure to COVID-19; D72.829 Elevated white blood cell count, unspecified; Z59.00 Homelessness unspecified; F17.210 Nicotine dependence, cigarettes, uncomplicated
CPT/HCPCS: 31500; 36415; 36569; 36600; 43236; 70450; 71045; 71250; 74021; 80048; 80053; 80069; 80202; 80307; 81001; 81025; 82140; 82805; 82962; 83036; 83605; 83735; 84100; 84132; 84478; 84484; 85007; 85025; 85027; 85379; 85384; 85610; 85730; 86703; 87040; 87070; 87077; 87081; 87086; 87088; 87186; 87205; 87804; 93005; 93306; 94002; 94003; 94640; 94644; 94645; 96365; 96367; 96375; 99291; A4605; C9113; G0378; J0171; J0330; J0690; J0696; J1100; J1815; J2001; J2250; J2704; J3480; J3490; J7060; J7131